=== PATIENT | female | born 1985 | race Hispanic/Latino ===

== ENCOUNTER → 2018-01-23 13:34 | Outpatient (CLI) | payer BC, SELFPAY ==
--- NOTE | 2018-01-23 13:39 | STE_ITS ---
Reason For Study: ABN EKG, HTN Stress Results Protocol: Stress Echocardiogram Maximum Predicted HR: 190 bpm Target HR: 162 bpm% Maximum Pr edicted HR: 86 % DurationHeart Rate Stage (mm:ss) (bpm) BP BASELINE 74 142/98 JANA PROTOCOL- STAGE 1 3:00 11 6 144/96 JANA PROTOCOL- STAGE 2 3:00 13 1 144/100 JANA PROTOCOL- STAGE 3 3:00 16 4 160/102 RECOVERY 87 146/98 Stress Duration: 9:00 mm:ss Maximum Stress HR: 164 bpmM ETS: 10 Baseline Echocardiogram Findings Stress Echo Wall motion Data Resting WMIntermediate WMStress WM Resting Wall Motion Wall Motion Stress All segments Normal. All segments Hyperkinetic. Ejection Fraction 55 %. Ejection Fraction 70 %. Stress Results Heart rate response: appropriate Blood pressure response: resting hypertension - appropriate response Arrhythmias: none Functional capacity: good Stopped secondary to: leg fatigue. EKG Data Resting ECG: NSR. Stress ECG: No obvious ECG changes. Symptoms with Stress No c/o chest discomfort during exercise / recovery. Interpretation Summary NEGATIVE (ADEQUATE) STRESS ECHOCARDIOGRAM Ordering Physician: Claudine Alves PRODUCE SPECIALIST Referring Physician: Christina Butler M.D. Performed By: Danni Darden RDCS
== END ==
PROVIDERS: Family Provider Internal Medicine; PCP Internal Medicine
DX: I10 Essential (primary) hypertension (principal); R07.9 Chest pain, unspecified; R94.31 Abnormal electrocardiogram [ECG] [EKG]
CPT/HCPCS: 93017; 93350

== ENCOUNTER → 2018-06-01 21:51 | Outpatient (CLI) | payer BC, SELFPAY ==
[2018-06-01 23:59] LABS: Chlamydia Trachomatis by PCR Negative (Negative); Neisserai gonorrhoeae by PCR Negative (Negative); Probe Check PASS; Sample Adequacy Control PASS; Specimen Processing Control PASS
[2018-06-08 11:10] LABS: HPV Genotype 16, Aptima Negative (Negative)
[2018-06-08 15:39] LABS: HPV APTIMA, High Risk Positive (Negative); HPV Genotype 18,45 Aptima Negative (Negative)
== END ==
PROVIDERS: Family Provider Internal Medicine; PCP Internal Medicine; Referring Provider Obstetrics & Gynecology; Visit Provider Obstetrics & Gynecology
DX: O16.1 Unspecified maternal hypertension, first trimester (principal); O09.90 Supervision of high risk pregnancy, unspecified, unspecified trimester; Z3A.00 Weeks of gestation of pregnancy not specified
CPT/HCPCS: 87086; 87088; 87491; 87591; 87624; 88175; G0145

== ENCOUNTER → 2018-06-21 09:33 | Outpatient (CLI) | payer BC, SELFPAY ==
[2018-06-21 10:20] LABS: Absolute Lymphocyte Count 1.63 X10^3/ul (0.83-4.51); Absolute Neutrophil Count 5.9 X10^3/uL (2.0-7.7); Basophil# 0.01 X10^3/uL; Basophil% 0.1 % (0-1); Eosinophil# 0.06 X10^3/uL; Eosinophils% 0.8 % (0-5); Hematocrit 36.3 % (37-47); Hemoglobin 11.9 g/dl (12.0-15.0); Lymphocyte # 1.63 X10^3/ul (4.0); Lymphocyte % 20.5 % (19-41); Mean Corp Hgb Conc 32.8 g/gl (32-36); Mean Corpuscular Hgb 26.6 pg (27.0-32.0); Mean Platelet Vol. 9.7 fl (6.2-12.0); Monocyte# 0.34 X10^3/uL; Monocyte% 4.3 % (0-10); Neutrophil # 5.92 X10^3/uL (2.7-7.7); Neutrophil % 74.2 % (47-70); Platelet Count 219 K/mm3 (150-450); RBC Distribution Width CV 13.4 % (11.6-14.6); RBC Distribution Width SD 39.3 fl (35.1-43.9); Red Blood Count 4.48 M/mm3 (4.2-5.4)
[2018-06-21 10:32] LABS: POSITIVE COUNT NO; POSITIVE DIFFERENTIAL NO; POSITIVE MORPHOLOGY NO
[2018-06-21 10:57] LABS: ALB/GLOB Ratio 0.8 RATIO (0.9-2.4); AST(SGOT) 12 U/L (15-37); Alanine Aminotransfer ALT/SGPT 27 U/L (13-56); Albumin, Serum 3.2 g/dL (3.2-5.0); Alkaline Phosphatase 51 U/L (45-117); Anion Gap 8 (5-15); BUN 14 mg/dL (7-18); BUN/Creat Ratio 26.7 RATIO (10-20); Calcium,Total 8.8 mg/dL (8.5-10.1); Chloride 100 mmol/L (98-107); Creatinine, Serum 0.52 mg/dL (0.55-1.02); EST Glomerular Filtration Rate 145 mL/min (>60); Est Glom Filt Rate - Afr Amer 175 mL/min (>60); Globulin 4.2 g/dL (2.2-4.2); Glucose 81 mg/dL (74-106); Potassium 3.2 mmol/L (3.5-5.1); Protein, Total 7.4 g/dL (6.4-8.2); Sodium Level 137 mmol/L (136-145)
[2018-06-21 11:35] LABS: HIV - WCH Non-Reactive (Nonreactive); Rubella IgG 22.9 IU/mL
[2018-06-22 03:51] LABS: Rapid Plasmin Reagin (RPR) NONREACTIVE (NONREACTIVE)
[2018-06-22 16:09] LABS: Hemoglobin Fraction A 97.4 % (96.4-98.8); Hemoglobin Fraction C 0 % (0.0); Hemoglobin Fraction F 0.6 % (0.0-2.0); Hemoglobin Fraction S 0 % (0.0); Hemoglobin Solubility,Panel Negative (Negative)
[2018-06-23 10:46] LABS: HEPATITIS B SURFACE AG Negative (Negative)
== END ==
PROVIDERS: Family Provider Internal Medicine; PCP Internal Medicine; Referring Provider Obstetrics & Gynecology; Visit Provider Obstetrics & Gynecology
DX: O16.1 Unspecified maternal hypertension, first trimester (principal); O09.90 Supervision of high risk pregnancy, unspecified, unspecified trimester; Z3A.00 Weeks of gestation of pregnancy not specified
CPT/HCPCS: 36415; 80053; 83021; 85025; 85660; 86592; 86703; 86762; 86850; 86900; 87340

== ENCOUNTER → 2018-06-26 09:01 | Outpatient (CLI) | payer BC, SELFPAY | PROVIDERS: Family Provider Internal Medicine; PCP Internal Medicine; Referring Provider Obstetrics & Gynecology; Visit Provider Obstetrics & Gynecology | DX: Z00.00 Encounter for general adult medical examination without abnormal findings (principal) | CPT/HCPCS: 36415 ==

== ENCOUNTER → 2018-07-03 21:57 | Outpatient (CLI) | payer BC, SELFPAY ==
[2018-07-03 08:35] VITALS: BMI 37.2
== END ==
PROVIDERS: Referring Provider Obstetrics & Gynecology; Visit Provider Obstetrics & Gynecology
DX: R30.0 Dysuria (principal)
CPT/HCPCS: 87086; 87088

== ENCOUNTER → 2018-08-20 10:56 | Outpatient (CLI) | payer BC, SELFPAY ==
[2018-08-03 09:03] VITALS: BMI 37.2
--- NOTE | 2018-08-20 11:19 | US_ITS ---
STUDY: SECOND AND THIRD TRIMESTER OBSTETRICAL ULTRASOUND REASON FOR EXAM: Female, 33 years old. Routine survey. LMP: April 02, 2018. TECHNIQUE: Transabdominal TECHNICAL QUALITY: Limited. Examination limited due to obesity. PRIOR ULTRASOUND: None. FINDINGS: There is a single intrauterine fetus. The fetus is in a cephalic presentation. There is demonstrated cardiac activity with a heart rate of 142 bpm. There is a normal amniotic fluid volume. The largest amniotic fluid pocket measures 3.2 cm x 4.0 cm. The amniotic fluid index (BENNETT) is normal. The placenta is There are Grade 0 placental changes. The cervix measures in length. The bilateral adnexal regions are normal. BIOMETRY: BPD: 4.8 cm: 20 weeks, 5 days HC: 18.2 cm: 20 weeks, 4 days AC: 15.3 cm: 20 weeks, 4 days FL: 3.7 cm: 21 weeks, 5 days CI: 79% FL/BPD: 76% FL/HC: FL/AC: 24% HC/AC: 1.19 age by current US: 21 weeks, 0 days. YANE by current US: December 31, 2018. Estimated weight: 392 grams, +/- 57 grams, 92 %. Age by LMP: 20 weeks, 0 days. YANE by LMP: January 07, 2019. ANATOMY: Gender: Female Cranium: Normal lateral ventricles. Normal choroid plexus. Normal cerebellum. Normal cisterna magna. The face, nose and lips are not visualized. Chest: Normal 4-chamber heart. Abdomen/Pelvis: Normal diaphragm. Normal stomach. Normal abdominal wall. Normal cord insertion. Normal 3 vessel cord. Normal kidneys. Normal bladder. Spine: Normal cervical spine. Normal thoracic spine. The lumbar spine is not completely visualized. Normal sacrum. Extremities: Normal bilateral upper extremities. Normal bilateral lower extremities. US/OB Anatomy Scan IMPRESSION: Single live intrauterine gestation with a mean gestational age of 20 weeks. Electronically Signed: Shashank Woodawrd MD at 15:09 EST Tel [phone], Service support ,
== END ==
PROVIDERS: Family Provider Internal Medicine; PCP Internal Medicine; Referring Provider Obstetrics & Gynecology; Visit Provider Obstetrics & Gynecology
DX: O09.90 Supervision of high risk pregnancy, unspecified, unspecified trimester (principal); Z3A.00 Weeks of gestation of pregnancy not specified
CPT/HCPCS: 76805

== ENCOUNTER → 2018-10-01 17:07 | Outpatient (CLI) | payer BC, SELFPAY ==
[2018-10-01 16:36] VITALS: BMI 37.2
[2018-10-01 17:57] LABS: Glucose Challenge Gest 1H 50g 119 mg/dL (70-140)
== END ==
PROVIDERS: Family Provider Internal Medicine; PCP Internal Medicine; Referring Provider Obstetrics & Gynecology; Visit Provider Obstetrics & Gynecology
DX: O09.90 Supervision of high risk pregnancy, unspecified, unspecified trimester (principal)
CPT/HCPCS: 36415; 82950

== ENCOUNTER → 2018-11-15 13:55 | Outpatient (CLI) | payer BC, SELFPAY ==
[2018-11-02 15:25] VITALS: BMI 37.2
--- NOTE | 2018-11-15 13:56 | US_ITS ---
STUDY: SECOND AND THIRD TRIMESTER OBSTETRICAL ULTRASOUND - LIMITED REASON FOR EXAM: Female, 33 years old. Amniotic fluid check. LMP: April 02, 2018. PRIOR ULTRASOUND: Comparison is made with prior examination dated February 07, 2019. TECHNIQUE: Transabdominal TECHNICAL QUALITY: Adequate. FINDINGS: There is a single intrauterine fetus. The fetus is in a cephalic presentation. There is demonstrated cardiac activity with a heart rate of 128 -153 bpm. There is a normal amniotic fluid volume. The largest amniotic fluid pocket measures 5.2 cm. The amniotic fluid index (BENNETT) is 16.1 cm. The placenta is anterior in location and is not low lying. There are Grade 1 placental changes. The cervix measures 3.7 cm in length. BIOMETRY: Age by LMP: 32 weeks, 3 days. YANE by LMP: January 07, 2019. age by prior US: 33 weeks, 3 days. YANE by prior US: December 31, 2018. Gender: Indeterminant US/OB Limited (No Biometrics) IMPRESSION: Normal amniotic fluid. Electronically Signed: Shashank Woodward, at 11:21 EDT , Service support ,
== END ==
PROVIDERS: Family Provider Internal Medicine; PCP Internal Medicine; Referring Provider Obstetrics & Gynecology; Visit Provider Obstetrics & Gynecology
DX: O16.3 Unspecified maternal hypertension, third trimester (principal); Z3A.00 Weeks of gestation of pregnancy not specified
CPT/HCPCS: 76815

== ENCOUNTER → 2018-11-21 | Outpatient (CLI) | payer BC, SELFPAY ==
[2018-11-17 14:30] VITALS: BMI 37.2
--- NOTE | 2018-11-21 14:00 | US_ITS ---
STUDY: SECOND AND THIRD TRIMESTER OBSTETRICAL ULTRASOUND - LIMITED REASON FOR EXAM: Female, 33 years old. Hypertension. Weekly amniotic fluid index measurements. LMP: April 02, 2018. PRIOR ULTRASOUND: Comparison is made with prior study dated November 15, 2018 and August 20, 2018. TECHNIQUE: Transabdominal TECHNICAL QUALITY: Adequate. FINDINGS: There is a single intrauterine fetus. The fetus is in a cephalic presentation. There is demonstrated cardiac activity with a heart rate of 144 bpm. There is a normal amniotic fluid volume. The largest amniotic fluid pocket measures 6.9 cm. The amniotic fluid index (BENNETT) is 15.24 cm. The placenta is anterior in location and is not low lying. There are Grade 1 placental changes. The cervix measures 3.2 cm in length. US/OB Limited (No Biometrics) IMPRESSION: Normal amniotic fluid index. Electronically Signed: Shashank Woodward, at 8:45 EDT , Service support ,
== END | disposition home or self-care (01) ==
LOC: OPUS 13:59
PROVIDERS: Family Provider Internal Medicine; PCP Internal Medicine; Referring Provider Obstetrics & Gynecology; Visit Provider Obstetrics & Gynecology
DX: O16.9 Unspecified maternal hypertension, unspecified trimester (principal); Z3A.00 Weeks of gestation of pregnancy not specified
CPT/HCPCS: 76815

== ENCOUNTER → 2018-11-30 | Outpatient (CLI) | payer BC, SELFPAY ==
[2018-11-17 14:30] VITALS: BMI 37.2
[2018-11-23 15:40] VITALS: BMI 37.2
--- NOTE | 2018-11-30 08:03 | US_ITS ---
STUDY: SECOND AND THIRD TRIMESTER OBSTETRICAL ULTRASOUND - LIMITED REASON FOR EXAM: Female, 33 years old. Weekly amniotic fluid check. LMP: November 21, 2018. PRIOR ULTRASOUND: Comparison is made with prior study dated November 21, 2018 and November 15, 2018. TECHNIQUE: Transabdominal and Transvaginal TECHNICAL QUALITY: Adequate. FINDINGS: There is a single intrauterine fetus. The fetus is in a cephalic presentation. There is demonstrated cardiac activity with a heart rate of 133 bpm. There is a normal amniotic fluid volume measures upper limits of normal. The largest amniotic fluid pocket measures 6.2 cm. The amniotic fluid index (BENNETT) is 20.88 cm. The placenta is anterior in location and is not low lying. There are Grade 1 placental changes. The cervix measures 3.0 cm in length. Age by LMP: 34 weeks, 4 days. YANE by LMP: January 07, 2019. age by prior US: 35 weeks, 4 days. YANE by prior US: December 31, 2018. US/OB Limited (No Biometrics) IMPRESSION: The amniotic fluid index measures upper limits of normal. Electronically Signed: Shashank Woodward, at 9:17 EDT , Service support ,
== END | disposition home or self-care (01) ==
PROVIDERS: Family Provider Internal Medicine; PCP Internal Medicine; Referring Provider Obstetrics & Gynecology; Visit Provider Obstetrics & Gynecology
DX: O16.3 Unspecified maternal hypertension, third trimester (principal); Z3A.00 Weeks of gestation of pregnancy not specified
CPT/HCPCS: 76815

== ENCOUNTER → 2018-12-04 | Outpatient (CLI) | payer BC, SELFPAY ==
[2018-11-30 15:31] VITALS: BMI 37.2
[2018-12-04 17:28] LABS: Absolute Lymphocyte Count 1.63 X10^3/ul (0.83-4.51); Absolute Neutrophil Count 6.8 X10^3/uL (2.0-7.7); Basophil# 0.01 X10^3/uL; Basophil% 0.1 % (0-1); Eosinophil# 0.06 X10^3/uL; Eosinophils% 0.7 % (0-5); Hematocrit 36.1 % (37-47); Hemoglobin 11.8 g/dl (12.0-15.0); Lymphocyte # 1.63 X10^3/ul (4.0); Lymphocyte % 18.2 % (19-41); Mean Corp Hgb Conc 32.7 g/gl (32-36); Mean Corpuscular Hgb 26.2 pg (27.0-32.0); Mean Platelet Vol. 10.2 fl (6.2-12.0); Monocyte# 0.45 X10^3/uL; Neutrophil # 6.81 X10^3/uL (2.7-7.7); Neutrophil % 75.8 % (47-70); Platelet Count 230 K/mm3 (150-450); RBC Distribution Width CV 13.8 % (11.6-14.6); Red Blood Count 4.51 M/mm3 (4.2-5.4)
[2018-12-04 17:33] LABS: POSITIVE COUNT NO; POSITIVE DIFFERENTIAL NO; POSITIVE MORPHOLOGY NO
[2018-12-04 17:52] LABS: BUN 11 mg/dL (7-18); Creatinine, Serum 0.54 mg/dL (0.55-1.02); EST Glomerular Filtration Rate 140 mL/min (>60); Glucose 82 mg/dL (74-106)
[2018-12-04 17:53] LABS: ALB/GLOB Ratio 0.6 RATIO (0.9-2.4); AST(SGOT) 12 U/L (15-37); Alanine Aminotransfer ALT/SGPT 14 U/L (13-56); Albumin, Serum 2.7 g/dL (3.2-5.0); Alkaline Phosphatase 109 U/L (45-117); Anion Gap 6 (5-15); BUN/Creat Ratio 20.4 RATIO (10-20); Calcium,Total 8.6 mg/dL (8.5-10.1); Chloride 102 mmol/L (98-107); Est Glom Filt Rate - Afr Amer 169 mL/min (>60); Globulin 4.3 g/dL (2.2-4.2); LDH 159 U/L (84-246); Potassium 3.6 mmol/L (3.5-5.1); Sodium Level 135 mmol/L (136-145); Uric Acid 6.3 mg/dL (2.6-6.0)
[2018-12-04 18:05] LABS: Protein, Urine (Random) < 6.0 mg/dL (<11.9); Protein:Creat Ratio 145 mg/g CRE (0-200)
== END | disposition home or self-care (01) ==
PROVIDERS: Family Provider Internal Medicine; PCP Internal Medicine; Referring Provider Obstetrics & Gynecology; Visit Provider Obstetrics & Gynecology
DX: O16.1 Unspecified maternal hypertension, first trimester (principal); O26.891 Other specified pregnancy related conditions, first trimester; L50.9 Urticaria, unspecified; Z3A.00 Weeks of gestation of pregnancy not specified
CPT/HCPCS: 36415; 80053; 82570; 83615; 84156; 84550; 85025

== ENCOUNTER → 2018-12-06 | Outpatient (CLI) | payer BC, SELFPAY ==
[2018-11-17 14:30] VITALS: BMI 37.2
[2018-12-04 16:36] VITALS: BMI 37.2
--- NOTE | 2018-12-06 13:57 | US_ITS ---
STUDY: SECOND AND THIRD TRIMESTER OBSTETRICAL ULTRASOUND - LIMITED REASON FOR EXAM: Female, 33 years old. Hypertension, BENNETT check LMP: 04/02/2018 PRIOR ULTRASOUND: 11/30/2018 TECHNIQUE: Transabdominal TECHNICAL QUALITY: Adequate. FINDINGS: There is a single intrauterine fetus. The fetus is in a cephalic presentation. There is demonstrated cardiac activity with a heart rate of 150 bpm. There is a normal amniotic fluid volume. The largest amniotic fluid pocket measures 6.8 cm. The amniotic fluid index (BENNETT) is 14.8 cm. The placenta is anterior in location and is not low lying. There are Grade 1 placental changes. The cervix measures 3.0 cm in length. Age by LMP: 35 weeks, 3 days. YANE by LMP: 01/07/2019. age by prior US: 36 weeks, 3 days. YANE by prior US: 12/31/2018. US/OB Limited (No Biometrics) IMPRESSION: Single live intrauterine with heart rate of 150 bpm. MVP measures 6.8 cm with BENNETT measuring 14.8 cm Electronically Signed: Robb Villatoro MD at 15:28 EDT , Service support ,
== END | disposition home or self-care (01) ==
PROVIDERS: Family Provider Internal Medicine; PCP Internal Medicine; Referring Provider Obstetrics & Gynecology; Visit Provider Obstetrics & Gynecology
DX: O16.3 Unspecified maternal hypertension, third trimester (principal); Z3A.00 Weeks of gestation of pregnancy not specified
CPT/HCPCS: 76815

== ENCOUNTER → 2018-12-12 | Outpatient (CLI) | payer BC, SELFPAY ==
[2018-11-17 14:30] VITALS: BMI 37.2
[2018-12-07 08:13] VITALS: BMI 37.2
--- NOTE | 2018-12-12 08:04 | US_ITS ---
STUDY: SECOND AND THIRD TRIMESTER OBSTETRICAL ULTRASOUND - LIMITED REASON FOR EXAM: Female, 33 years old. Weekly amniotic fluid index study. LMP: April 02, 2018. PRIOR ULTRASOUND: Comparison is made with prior study dated December 06, 2018. TECHNIQUE: Transabdominal TECHNICAL QUALITY: Adequate. FINDINGS: There is a single intrauterine fetus. The fetus is in a cephalic presentation. There is demonstrated cardiac activity with a heart rate of 129 bpm. There is a normal amniotic fluid volume. The largest amniotic fluid pocket measures 8.1 cm. The amniotic fluid index (BENNETT) is 16.45 cm. The placenta is anterior in location and is not low lying. There are Grade 2 placental changes. The cervix measures 3.0 cm in length. US/OB Limited (No Biometrics) IMPRESSION: Single live intrauterine gestation. Normal amniotic fluid. Electronically Signed: Shashank Woodward, at 13:44 EDT , Service support ,
== END | disposition home or self-care (01) ==
PROVIDERS: Family Provider Internal Medicine; PCP Internal Medicine; Referring Provider Obstetrics & Gynecology; Visit Provider Obstetrics & Gynecology
DX: O16.9 Unspecified maternal hypertension, unspecified trimester (principal); Z3A.00 Weeks of gestation of pregnancy not specified
CPT/HCPCS: 76815

== ENCOUNTER → 2018-12-13 | Outpatient (CLI) | payer BC, SELFPAY ==
[2018-12-13 16:35] VITALS: BMI 37.2
== END | disposition home or self-care (01) ==
LOC: LABSPEC 16:54
PROVIDERS: Family Provider Internal Medicine; PCP Internal Medicine; Referring Provider Nurse Practitioner Women's Health; Visit Provider Nurse Practitioner Women's Health
DX: Z34.90 Encounter for supervision of normal pregnancy, unspecified, unspecified trimester (principal)
CPT/HCPCS: 87081

== ENCOUNTER → 2018-12-20 14:03 | Outpatient (CLI) | payer BC, SELFPAY ==
[2018-11-17 14:30] VITALS: BMI 37.2
[2018-12-13 16:35] VITALS: BMI 37.2
--- NOTE | 2018-12-20 14:06 | US_ITS ---
STUDY: SECOND AND THIRD TRIMESTER OBSTETRICAL ULTRASOUND - LIMITED REASON FOR EXAM: Female, 33 years old. Weekly amniotic fluid check. LMP: April 02, 2018. PRIOR ULTRASOUND: Comparison is made with prior study of December 12, 2018. TECHNIQUE: Transabdominal TECHNICAL QUALITY: Adequate. FINDINGS: There is a single intrauterine fetus. The fetus is in a cephalic presentation. There is demonstrated cardiac activity with a heart rate of 146 bpm. There is a normal amniotic fluid volume. The largest amniotic fluid pocket measures 5.2 cm. The amniotic fluid index (BENNETT) is 9.5 cm. The placenta is anterior in location and is not low lying. There are Grade 2 placental changes. US/OB Limited (No Biometrics) IMPRESSION: Amniotic fluid is within normal limits. Electronically Signed: Shashank Woodward, at 14:08 EDT , Service support ,
[2018-12-20 17:29] LABS: Absolute Lymphocyte Count 1.52 X10^3/ul (0.83-4.51); Absolute Neutrophil Count 8.4 X10^3/uL (2.0-7.7); Basophil# 0.01 X10^3/uL; Basophil% 0.1 % (0-1); Eosinophil# 0.04 X10^3/uL; Eosinophils% 0.4 % (0-5); Hematocrit 34.5 % (37-47); Hemoglobin 11.5 g/dl (12.0-15.0); Lymphocyte # 1.52 X10^3/ul (4.0); Lymphocyte % 14.4 % (19-41); Mean Corp Hgb Conc 33.3 g/gl (32-36); Mean Corpuscular Hgb 26.2 pg (27.0-32.0); Mean Corpuscular Volume 78.6 fL (81-99); Mean Platelet Vol. 10.2 fl (6.2-12.0); Monocyte# 0.57 X10^3/uL; Monocyte% 5.4 % (0-10); Neutrophil % 79.4 % (47-70); Platelet Count 224 K/mm3 (150-450); RBC Distribution Width CV 14.1 % (11.6-14.6); RBC Distribution Width SD 38.8 fl (35.1-43.9); Red Blood Count 4.39 M/mm3 (4.2-5.4); White Blood Count 10.6 K/mm3 (4.4-11.0)
[2018-12-20 17:35] LABS: POSITIVE COUNT NO; POSITIVE DIFFERENTIAL NO; POSITIVE MORPHOLOGY NO
[2018-12-20 18:33] LABS: ALB/GLOB Ratio 0.6 RATIO (0.9-2.4); AST(SGOT) 14 U/L (15-37); Alanine Aminotransfer ALT/SGPT 13 U/L (13-56); Albumin, Serum 2.6 g/dL (3.2-5.0); Alkaline Phosphatase 120 U/L (45-117); Anion Gap 6 (5-15); BUN 14 mg/dL (7-18); BUN/Creat Ratio 24.7 RATIO (10-20); Calcium,Total 8.7 mg/dL (8.5-10.1); Chloride 101 mmol/L (98-107); Creatinine, Serum 0.57 mg/dL (0.55-1.02); EST Glomerular Filtration Rate 132 mL/min (>60); Est Glom Filt Rate - Afr Amer 160 mL/min (>60); Glucose 105 mg/dL (74-106); Potassium 3.5 mmol/L (3.5-5.1); Protein, Total 6.6 g/dL (6.4-8.2); Sodium Level 133 mmol/L (136-145)
== END ==
PROVIDERS: Family Provider Internal Medicine; PCP Internal Medicine; Referring Provider Obstetrics & Gynecology; Visit Provider Obstetrics & Gynecology
DX: O16.9 Unspecified maternal hypertension, unspecified trimester (principal)
CPT/HCPCS: 36415; 76815; 80053; 85025

== ENCOUNTER 2018-12-21 15:30 | Outpatient (CLI) | payer BC, SELFPAY ==
[2018-12-21 15:22] VITALS: BMI 43.7
[2018-12-21 15:55] VITALS: BMI 43.9
[2018-12-21 16:19] LABS: Hematocrit 34.8 % (37-47); Hemoglobin 11.7 g/dl (12.0-15.0); Mean Corp Hgb Conc 33.6 g/gl (32-36); Mean Corpuscular Hgb 26.5 pg (27.0-32.0); Mean Corpuscular Volume 78.9 fL (81-99); Mean Platelet Vol. 10.3 fl (6.2-12.0); Platelet Count 223 K/mm3 (150-450); RBC Distribution Width CV 14.2 % (11.6-14.6); RBC Distribution Width SD 39.2 fl (35.1-43.9); Red Blood Count 4.41 M/mm3 (4.2-5.4); White Blood Count 9.4 K/mm3 (4.4-11.0)
[2018-12-21 16:29] LABS: Scan Indicated on CBC? Y/N NO
[2018-12-21 16:32] LABS: AST(SGOT) 8 U/L (15-37); Alanine Aminotransfer ALT/SGPT 15 U/L (13-56); Creatinine, Serum 0.64 mg/dL (0.55-1.02); EST Glomerular Filtration Rate 114 mL/min (>60); Est Glom Filt Rate - Afr Amer 137 mL/min (>60); Estimated Creatinine Clearance 96.11 ml/min
[2018-12-21 16:39] LABS: Protein, Urine (Random) 24.4 mg/dL (<11.9); Protein:Creat Ratio 157 mg/g CRE (0-200)
[2018-12-21 16:44] LABS: International Normalized Ratio 1.1
[2018-12-21 16:45] LABS: Partial Thromboplast Time 28.8 Seconds (24.1-36.2)
--- NOTE | 2018-12-23 20:24 | OB.TRI.PN_ITS ---
Progress Notes Date of Service: 12/21/18 Progress Note: Patient seen for elevated blood pressures 140s over 100s. Patient denies any headache or blurry vision heart tones 140s moderate variability reactive no decelerations category 1 tracing [place]: Irregular contractions Assessment and plan chronic hypertension 37 weeks preeclampsia labs sent and within normal limits. Reviewed blood pressure cuff precautions given follow-up for induction of labor on Monday Laboratory Studies: Laboratory Tests 12/21/18 12/21/18 12/21/18 Range/Units 16:00 16:00 16:00 WBC (4.4-11.0) K/mm3 RBC (4.2-5.4) M/mm3 Hgb (12.0-15.0) g/dl Hct (37-47) % MCV (81-99) fL MCH (27.0-32.0) pg MCHC (32-36) g/gl RDW (11.6-14.6) % RDW Differential (35.1-43.9) fl Plt Count (150-450) K/mm3 MPV (6.2-12.0) fl PT 14.0 (11.7-14.9) SECONDS INR 1.1 APTT 28.8 (24.1-36.2) Seconds Creatinine 0.64 (0.55-1.02) mg/dL Estim Creat Clear Calc 96.11 ml/min Est GFR (MDRD) Af Amer 137 (>60) mL/min Est GFR (MDRD) Non-Af 114 (>60) mL/min Uric Acid 7.0 H (2.6-6.0) mg/dL AST 8 L (15-37) U/L ALT 15 (13-56) U/L U Random Total Protein 24.4 H (<11.9) mg/dL Urine Creatinine 155.00 (NO RANGE EST.) mg/dL Protein/Creatinin Ratio 157 (0-200) mg/g CRE 12/21/18 Range/Units 16:00 WBC 9.4 (4.4-11.0) K/mm3 RBC 4.41 (4.2-5.4) M/mm3 Hgb 11.7 L (12.0-15.0) g/dl Hct 34.8 L (37-47) % MCV 78.9 L (81-99) fL MCH 26.5 L (27.0-32.0) pg MCHC 33.6 (32-36) g/gl RDW 14.2 (11.6-14.6) % RDW Differential 39.2 (35.1-43.9) fl Plt Count 223 (150-450) K/mm3 MPV 10.3 (6.2-12.0) fl PT (11.7-14.9) SECONDS INR APTT (24.1-36.2) Seconds Creatinine (0.55-1.02) mg/dL Estim Creat Clear Calc ml/min Est GFR (MDRD) Af Amer (>60) mL/min Est GFR (MDRD) Non-Af (>60) mL/min Uric Acid (2.6-6.0) mg/dL AST (15-37) U/L ALT (13-56) U/L U Random Total Protein (<11.9) mg/dL Urine Creatinine (NO RANGE EST.) mg/dL Protein/Creatinin Ratio (0-200) mg/g CRE
== END 2018-12-21 17:05 | disposition home or self-care (01) ==
LOC: WPOUT 15:43 → WP 15:44
PROVIDERS: Family Provider Internal Medicine; PCP Internal Medicine; Referring Provider Obstetrics & Gynecology; Visit Provider Obstetrics & Gynecology
DX: O10.913 Unspecified pre-existing hypertension complicating pregnancy, third trimester (principal); Z3A.37 37 weeks gestation of pregnancy
CPT/HCPCS: 36415; 59025; 59050; 82565; 82570; 84156; 84450; 84460; 84550; 85027; 85610; 85730; 99218; G0378

== ENCOUNTER 2018-12-24 19:00 | Inpatient (IN) | payer BC, SELFPAY ==
[2018-12-04 16:36] VITALS: BMI 37.2
[2018-12-24 20:05] VITALS: BMI 43.2
[2018-12-24 20:52] LABS: Absolute Lymphocyte Count 1.75 X10^3/ul (0.83-4.51); Absolute Neutrophil Count 8.5 X10^3/uL (2.0-7.7); Basophil# 0.01 X10^3/uL; Basophil% 0.1 % (0-1); Eosinophil# 0.05 X10^3/uL; Eosinophils% 0.5 % (0-5); Hematocrit 34.4 % (37-47); Hemoglobin 11.6 g/dl (12.0-15.0); Lymphocyte # 1.75 X10^3/ul (4.0); Lymphocyte % 16.2 % (19-41); Mean Corp Hgb Conc 33.7 g/gl (32-36); Mean Corpuscular Hgb 26.9 pg (27.0-32.0); Mean Corpuscular Volume 79.6 fL (81-99); Mean Platelet Vol. 10.2 fl (6.2-12.0); Monocyte# 0.46 X10^3/uL; Monocyte% 4.3 % (0-10); Neutrophil # 8.54 X10^3/uL (2.7-7.7); Neutrophil % 78.8 % (47-70); Platelet Count 214 K/mm3 (150-450); RBC Distribution Width CV 14.3 % (11.6-14.6); RBC Distribution Width SD 40.7 fl (35.1-43.9); Red Blood Count 4.32 M/mm3 (4.2-5.4); White Blood Count 10.8 K/mm3 (4.4-11.0)
[2018-12-24 20:53] LABS: POSITIVE COUNT NO; POSITIVE DIFFERENTIAL NO; POSITIVE MORPHOLOGY NO
[2018-12-24] MEDS: Lactated Ringers 1,000 ML 50 ML IV (21:39)
[2018-12-24 22:55] LABS: International Normalized Ratio 1.1; Prothrombin Time (Protime)PT. 13.7 SECONDS (11.7-14.9)
[2018-12-24 22:56] LABS: Partial Thromboplast Time 28.9 Seconds (24.1-36.2)
[2018-12-24 22:59] LABS: AST(SGOT) 10 U/L (15-37); Alanine Aminotransfer ALT/SGPT 13 U/L (13-56); Creatinine, Serum 0.57 mg/dL (0.55-1.02); EST Glomerular Filtration Rate 130 mL/min (>60); Est Glom Filt Rate - Afr Amer 157 mL/min (>60); Estimated Creatinine Clearance 107.91 ml/min; Uric Acid 6.4 mg/dL (2.6-6.0)
[2018-12-24] MEDS: hydroCHLOROthiazide 25 MG Tablet 50 MG PO (23:30)
--- NOTE | 2018-12-25 06:34 | HP.PCM_ITS ---
- Problem List (1) Encounter for induction of labor Status: Acute (2) Status: Acute Qualifiers: Comment: NIPT low risk; normal anatomy US (3) HPV in female Status: Acute Comment: repeat pap PP (4) Supervision of high risk , antepartum Status: Acute Comment: PRR YANE 01/07/19 Girl claudia eve (5) Hypertension affecting Status: Acute Qualifiers: Comment: baseline labs, ekg this summer WNL History Date of Admission: 12/24/18 Final YANE: 01/07/19 Gestational age: 38 Weeks and 0 Days History of this : This is a 33 year-old, at 38 weeks gestational age presents for IOL secondary to cHTN. she has had well controlled blood pressures this and denies any BLANCO BV or RUQ pain. she admits good fm no regular ctx, lof or vb. Medical History: Medical History (Last Reviewed 12/20/18 @ 15:54 by Franci Lazar) Hypertension I10 Surgical History: Surgical History (Last Reviewed 12/20/18 @ 15:54 by Franci Lazar) S/P tonsillectomy and adenoidectomy Z90.89 Allergies No Known Allergies Allergy (Verified 12/21/18 15:58) Home Medications: Home Medications hydrochlorothiazide 50 mg tablet 50 mg PO DAILY 06/01/18 vitamin,calcium,orwresee-brbu-wwoau acid tablet 1 tab PO DAILY 06/01/18 blood pressure monitor kit See Dose Instructions .ROUTE .MEDSUPPLY #1 ea 09/04/18 Smoking Status: Never smoker Alcohol: None Number of Fetus(es): 1 Heart Tracin moderate variability reactive no decelerations category I tracing [place]: none History Past Pregnancies: Past Pregnancies Delivery Date Name GA/Weeks Outcome Route Weight Infant Gender Labor Length Anesthesia Delivery Location Provider FOB Labs: Mom's Labs & Results 12/24/18 12/24/18 12/24/18 20:20 20:20 20:20 WBC 10.8 RBC 4.32 Hgb 11.6 L Hct 34.4 L MCV 79.6 L MCH 26.9 L MCHC 33.7 RDW 14.3 RDW Differential 40.7 Plt Count 214 MPV 10.2 Immature Gran % (Auto) 0.100 Neut % (Auto) 78.8 H Lymph % (Auto) 16.2 L Bell % (Auto) 4.3 Eos % (Auto) 0.5 Baso % (Auto) 0.1 Absolute Neuts (auto) 8.5 H Absolute Lymphs (auto) 1.75 Total Counted Not Reportable PT 13.7 INR 1.1 APTT 28.9 Creatinine Estim Creat Clear Calc Est GFR (MDRD) Af Amer Est GFR (MDRD) Non-Af Uric Acid AST ALT Blood Type O POSITIVE Antibody Screen NEGATIVE 12/24/18 20:20 WBC RBC Hgb Hct MCV MCH MCHC RDW RDW Differential Plt Count MPV Immature Gran % (Auto) Neut % (Auto) Lymph % (Auto) Bell % (Auto) Eos % (Auto) Baso % (Auto) Absolute Neuts (auto) Absolute Lymphs (auto) Total Counted PT INR APTT Creatinine 0.57 Estim Creat Clear Calc 107.91 Est GFR (MDRD) Af Amer 157 Est GFR (MDRD) Non-Af 130 Uric Acid 6.4 H AST 10 L ALT 13 Blood Type Antibody Screen Course Did the patient receive Yes care? Labs Blood Type: O RH: POSITIVE RPR/VDRL/Syphilis Nonreactive Rubella status Immune HbSAg Negative Date Done: 06/21/19 Chlamydia Negative Gonorrhea Negative HIV/AIDS Non-Reactive Group B Strep: Negative Current Obstetrical History Gestational Diabetes No Incompetent Cervix No Infertility No IUGR No Macrosomia No Hypertension/Pre-eclampsia Yes: hydrochlorathiazide daily Placenta Previa/Abruption No PTL/PROM No Uterine anomaly No Oligohydramnios No Polyhydramnios No Multiple gestation No Past Medical History Asthma No Diabetes No Hypertension Yes: started about 1.5 years before Heart disease No Mitral valve prolapse No Neurologic/Seizure disorder/ No Migraines Kidney disease No Liver disease No Varicosities No Clotting disorders/Hx of DVT No Thyroid Dysfunction No Other medical diseases No Psychiatric disorders No Major trauma No Abnormal PAP smear Yes: May 2019-positive for HPV Sleep apnea No Mammogram in the last 2 years No Enter DETAILS of medical -Had been taking medication before, then went history off medication before , then resumed Social History Marital Status: Alleged father Eve Benites Hx Smoking No Smoking Status Never smoker How long have you used pt denies substances (years)? Expected Delivery Method: Spontaneous Vaginal Describe any other labor & delivery plans:: OB Visit. YANE Calculator. Estimated Delivery Date 01/07/19. Based on LMP (certain) 04/02/18. Current WG 37w 3d. Number 1. Expected Delivery Route/Plan. . Specific Issue/Plans. flu vaccine: given. tdap vaccine: given. rhogam: na. LARC form signed: declines. labor support person: Eve. pain management: epidural. cut cord/dad catch: yes. : yes. PP control planned: special requests: [] Review of Systems Constitutional: Denies: Fever, Malaise Eyes: Denies: Blurred vision, Vision Change HEENT: Denies: Head Aches, Visual Changes Cardiovascular: Denies: Chest Pain, Palpitations Respiratory: Denies: Cough, Shortness of Breath, Wheezing Gastrointestinal: Denies: Abdominal Pain, Diarrhea, Nausea, Vomiting Genitourinary: Denies: Dysuria, Hematuria Musculoskeletal: Denies: Joint Pain, Muscle pain Skin: Denies: Lesions, Rash Neurological: Denies: Blurred vision, Focal weakness, Headaches Psychiatric: Denies: Anxiety, Depression Endocrine: Denies: Heat/ Cold Intolerance Hematologic/ Lymphatic: Denies: Easy Bruising, Easy Bleeding Physical Exam General: Alert, Cooperative, No apparent distress HEENT: Atraumatic, Normocephalic. Negative for: Thyromegaly, Lymphadenopathy Cardiovascular: Regular rate Lungs: Normal air movement Abdomen: Soft, Non Tender, Gravid Neurological: Deep Tendon Reflexes 2+/4 and Symmetrical, Neuro grossly intact. Negative for: Clonus TIMEKEEPER: Normal external genitalia. Negative for: Vulvar lesions Estimated gestational size: Appropriate for gestational size Presentation: Cephalic Cervix Dilation (cm): 0 Assessment/Plan All Active Problems (Last Reviewed 12/20/18 @ 15:54 by Franci Lazar) Encounter for induction of labor (Acute) (Acute) HPV in female (Acute) Supervision of high risk , antepartum (Acute) Hypertension affecting (Acute) This is a 33 year-old, at 38 weeks gestational age presents for IOL secondary to cHTN Patient presents IOL, plan management for , pitocin/AROM after change with cytotec. may need FB Pain management: plans epidural. GBS negative Management of any complications: cHTN-preeclampsia labs WNL, monitor in labor continue med I have reviewed the [facility] and made any clinically relevant updates.
[2018-12-25] MEDS: 0.9% Normal Saline 100 ML IV.SOLN. INTRA-UTER (08:12)
[2018-12-25] MEDS: Oxytocin 30 units/NS 500 ml 30 UNITS/500 ML IV.SOLN IV (09:24)
--- NOTE | 2018-12-25 09:25 | PCM.PN.BLA ---
Progress Note fht 140s moderate variability reactive no decelerations category I tracing [place]: irregular /-1 fb placed and will plan pitocin
[2018-12-25] MEDS: Lactated Ringers 1,000 ML 50 ML IV ×4 (13:20→21:35)
[2018-12-25] MEDS: fentaNYL-bupivacaine (epidural) 100 ML BAG EPIDURAL ×3 (13:37→22:21)
--- NOTE | 2018-12-25 14:13 | NURSING ---
Epidural placement time delayed by DIANE occuring on the unit.
[2018-12-25] MEDS: Mag Hydrox/Al Hydrox/Simeth 30 ML UDC PO (21:35)
[2018-12-25] MEDS: hydroCHLOROthiazide 25 MG Tablet 50 MG PO (22:22)
[2018-12-26] VITALS (21 sets, daily range): BP systolic 98–158; BP diastolic 73–109; PULSE 101–120; RESP 16–20; TEMP 36.3–36.9; O2SAT 98–100
[2018-12-26] MEDS: Ondansetron 4 MG/2 ML Vial IV ×2 (00:56→08:06)
[2018-12-26] MEDS: Lactated Ringers 1,000 ML 50 ML IV ×2 (02:30→07:03)
--- NOTE | 2018-12-26 02:35 | PCM.PN.BLA ---
Progress Note fht 120-130 min-mod variability reactive no decels. toco q 2-3 min adequate. 9-10 cm. continue pit per protocol
[2018-12-26] MEDS: fentaNYL-bupivacaine (epidural) 100 ML BAG EPIDURAL (03:05)
[2018-12-26] MEDS: CHLORHEXIDINE GLUC 2% CLOTH 1 EACH TOWELETTE TOPICAL (06:08)
[2018-12-26] MEDS: Sodium Citrate/Citric Acid 30 ML UDC PO (07:02)
--- NOTE | 2018-12-26 07:02 | PCM.PN.BLA ---
Progress Note fht 120-130 min-mod variability cat II tracing positive scalp stimulation. adequate contractions for over 4 hours no cervical change still 8-9 cm 0 station. ineffective epidural patient very painful even after redosing multiple times. discussed with patient and will plan primary for arrest of dilation.
[2018-12-26] MEDS: Cefazolin 2 GM in 0.9% Normal Saline 100 ML IV (07:04)
--- NOTE | 2018-12-26 07:04 | PCM.OPRPT ---
Problem List (1) Encounter for induction of labor Status: Acute (2) Status: Acute Qualifiers: Comment: NIPT low risk; normal anatomy US (3) HPV in female Status: Acute Comment: repeat pap PP (4) Supervision of high risk , antepartum Status: Acute Comment: PRR YANE 01/07/19 Girl claudia eve (5) Hypertension affecting Status: Acute Qualifiers: Comment: baseline labs, ekg this summer WNL (6) Inadequate analgesia Status: Acute (7) Arrest of dilation, delivered, current hospitalization Status: Acute Report of Operation Date of Procedure: 12/26/18 Surgery/Procedure Performed:: LTCS adjunct instructor: Neisha Mejia Type of Anesthesia:: Spinal Grafts/Implants Used: none Delivery Classification: WINNIE Final YANE: 01/07/19 Gestational age: 38 Weeks and 2 Days Indications for : Arrrest of Descent Description of Procedure: 33-year-old G1, P0 who presented at 38 weeks for induction of labor secondary to chronic hypertension. Patient was initially given Cytotec and then may change to 1 to 2 cm and was started on a [place] bulb with Pitocin. Patient had spontaneous rupture of membranes and made progress to 8 to 9 cm. After 5 hours of mostly adequate contractions she had not progressed beyond 8 to 9 cm and a 0 station. Patient had significant discomfort with her epidural and an adequate anesthesia despite multiple re-doses patient declined replacement of the epidural. After discussing with the patient and her decision for primary secondary to arrest of dilation. Pitocin had been given for 22 hours and rupture of membranes was for over 18 hours. Spinal anesthesia was placed without difficulty. The patient was placed in the dorsal supine position with leftward tilt. Patient was prepped and draped in the normal sterile fashion. Pfannenstiel skin incision was made with the scalpel and carried through to the underlying layer of fascia with the scalpel. Fascia was nicked in the midline and the incision extended laterally. The rectus bellies were dissected off superiorly and inferiorly with out complication both sharply and bluntly. The peritoneum was entered digitally. The incision was stretched and a low transverse uterine incision was made with the scalpel. The infant's head was delivered atraumatically followed by the anterior and posterior shoulders without complication the rest of the infant delivered. The cord was clamped and cut and the infant was handed off to awaiting nurse. The placenta was delivered spontaneously immediately following and was noted to be intact and have a three-vessel cord. The uterus was exteriorized cleared of all clots and debris, and the incision was closed in a double layer closure using #1 Monocryl. The uterus was returned to the maternal abdomen and gutters were cleared of all clots and debris. The ovaries and fallopian tubes were noted to be within normal limits. The peritoneum was closed with 3-0 Monocryl in a running fashion. Fascia was closed with 0 PDS in a running fashion. Subcutaneous tissue was copiously irrigated and the skin was closed with 3-0 Monocryl in a subcuticular fashion. silver Mepilex dressing were applied without complication. Patient was taken to recovery in stable condition. Amniotic Membrane Rupture Type: Artificial Amniotic Fluid Description: Clear Placenta Disposition: [facility] Cord Entanglement: None Esitmated Blood Loss (ml): 900 Infant Gender: Male Delayed cord clamping: Yes Pre-op Antibiotic Given: Ancef 2 grams IV x1 - azithro Complications: None
[2018-12-26] MEDS: Oxytocin 30 units/NS 500 ml 30 UNITS/500 ML IV.SOLN IV (07:52)
[2018-12-26] MEDS: Oxytocin 30 units/NS 500 ml 30 UNITS/500 ML IV.SOLN 167 UNITS IV (07:52)
[2018-12-26] MEDS: Ketorolac 30 MG/ML Syringe IV ×3 (08:20→20:16)
[2018-12-26] MEDS: Lactated Ringers 1,000 ML 100 ML IV ×3 (08:38→23:10)
--- NOTE | 2018-12-26 08:40 | NURSING ---
anesthesia informed of need to use hotdog warmer underneath pt during csection procedure to follow infection control guidelines. magalie ESCOBAR spoke with Dr. Corbett to plug in machine before surgery began at 0748. He stated pt was too warm and did not need the warmer at this time. magalie Escobar spoke with Tashia Camacho to discuss further interventions and follow up. pt temp WNL. will continue to monitor after procedure complete.
--- NOTE | 2018-12-26 12:08 | NURSING ---
spoke with sports manager naya regarding the PACU score of 7 during recovery due to lower BP. Initial baseline BP was elevated in 150s systolically, so it was causing the BP range to be scored. this RN attempted to contact Dr. Foreman nurse twice to leave a message about this for the doctor and was unable to get ahold of her. BP WNL throughout entire recovery. No signs or symptoms to report at this time. will continue to monitor. bedside report given to shelly MCDONALD and information passed on.
[2018-12-26] MEDS: Prenatal Vits Tablet 1 TABLET PO (12:45)
[2018-12-26] MEDS: Enoxaparin 40 MG/0.4 ML Syringe SC (22:47)
--- NOTE | 2018-12-26 23:30 | NURSING ---
Pt. reports mild numbness left in the outer aspects of both upper thighs from epidural and duramorph medications. Pt. sat up and dangled at bedside for about 5 minutes and reported she felt like she felt okay to stand. Nurse assist x2 pt. stood, march in place, then went to the recliner to sit up for a bit and nurse .
[2018-12-26] MEDS: hydroCHLOROthiazide 25 MG Tablet 50 MG PO (23:38)
[2018-12-27] VITALS (8 sets, daily range): BP systolic 118–142; BP diastolic 81–94; PULSE 92–116; RESP 16–19; TEMP 36.4–37.1; O2SAT 97–100
[2018-12-27] MEDS: Senna/Docusate Sodium 1 Tablet PO (02:17)
[2018-12-27] MEDS: Ketorolac 30 MG/ML Syringe IV ×2 (02:17→08:30)
[2018-12-27 05:26] LABS: Hemoglobin 8.8 g/dl (12.0-15.0); Mean Corp Hgb Conc 32.6 g/gl (32-36); Mean Corpuscular Hgb 26.2 pg (27.0-32.0); Mean Corpuscular Volume 80.4 fL (81-99); Mean Platelet Vol. 9.8 fl (6.2-12.0); Platelet Count 147 K/mm3 (150-450); RBC Distribution Width CV 14.6 % (11.6-14.6); RBC Distribution Width SD 40.9 fl (35.1-43.9); Red Blood Count 3.36 M/mm3 (4.2-5.4); Scan Indicated on CBC? Y/N NO; White Blood Count 10.5 K/mm3 (4.4-11.0)
[2018-12-27] MEDS: Acetaminophen 500 MG Tablet 1000 MG PO ×2 (10:53→19:01)
[2018-12-27] MEDS: 0.9% Saline Lock 10 ML Syringe IV (14:59)
[2018-12-27] MEDS: Prenatal Vits Tablet 1 TABLET PO (14:59)
[2018-12-27] MEDS: Ketorolac 10 MG Tablet PO ×2 (16:40→22:41)
[2018-12-27] MEDS: oxyCODONE 5 MG Tablet PO ×2 (17:48→21:33)
[2018-12-27] MEDS: Enoxaparin 40 MG/0.4 ML Syringe SC (21:32)
[2018-12-27] MEDS: hydroCHLOROthiazide 25 MG Tablet 50 MG PO (21:33)
[2018-12-28] MEDS: oxyCODONE 5 MG Tablet PO ×5 (02:07→22:07)
[2018-12-28 02:10] VITALS: BP 145/93; PULSE 98; RESP 17
[2018-12-28] MEDS: Ketorolac 10 MG Tablet PO (05:03)
[2018-12-28 07:49] VITALS: BP 139/96; PULSE 100; RESP 20; TEMP 36.4
[2018-12-28] MEDS: Prenatal Vits Tablet 1 TABLET PO (11:08)
[2018-12-28] MEDS: Senna/Docusate Sodium 1 Tablet PO (11:08)
[2018-12-28 14:00] VITALS: BP 145/92; PULSE 95; RESP 16; TEMP 36.4
[2018-12-28 21:45] VITALS: BP 143/92; PULSE 108; RESP 20; TEMP 36.6; O2SAT 97
--- NOTE | 2018-12-28 22:01 | PCM.PN.OB ---
Patient Problems: Active and Suspected Problems (Last Reviewed 12/20/18 @ 15:54 by Franci Lazar) Encounter for induction of labor (Acute) Inadequate analgesia (Acute) Arrest of dilation, delivered, current hospitalization (Acute) Subjective: doing well no complaints pain controlled no CP SOB N V ambulating well tolerating po lochia moderate, going well - Physical Exam General: Alert, Oriented x3 Vital Signs Temp Pulse Resp BP Pulse Ox 97.5 F L 95 16 145/92 H 97 12/28/18 14:00 12/28/18 14:00 12/28/18 14:00 12/28/18 14:00 12/27/18 14:25 Oxygen Delivery Method Room Air Weight: 232 lb 9.403 oz Body Mass Index (BMI) 43.2 Intake and Output for Last 24 Hours 12/26/18 12/27/18 12/28/18 23:59 23:59 23:59 Intake Total 5032 / 5032 1796 / 1796 Output Total 1350 / 1350 3025 / 3025 Balance 3682 / 3682 -1229 / -1229 Medical Necessity - Tobacco Use Smoking Status: Never smoker Assessment/Plan All Active Problems (Last Reviewed 12/20/18 @ 15:54 by Franci Lazar) Encounter for induction of labor (Acute) Inadequate analgesia (Acute) Arrest of dilation, delivered, current hospitalization (Acute) (Acute) HPV in female (Acute) Supervision of high risk , antepartum (Acute) Hypertension affecting (Acute) s/p LTCS PPD # 2 1. routine post care 2. breast feeding- support given 3. rh positive 4. rubella immune
[2018-12-28] MEDS: hydroCHLOROthiazide 25 MG Tablet 50 MG PO (22:07)
[2018-12-28] MEDS: Enoxaparin 40 MG/0.4 ML Syringe SC (22:07)
[2018-12-29 02:22] VITALS: BP 140/96; PULSE 97; RESP 20; TEMP 36.6; O2SAT 97
[2018-12-29] MEDS: Prenatal Vits Tablet 1 TABLET PO (08:00)
[2018-12-29] MEDS: Naproxen 250 MG Tablet PO (08:01)
[2018-12-29] MEDS: Senna/Docusate Sodium 1 Tablet PO (08:02)
[2018-12-29 08:10] VITALS: BP 141/93; PULSE 84; RESP 18; TEMP 36.6; O2SAT 97
--- NOTE | 2018-12-29 09:14 | PCM.PN.OB ---
Patient Problems: Active and Suspected Problems (Last Reviewed 12/20/18 @ 15:54 by Franci Lazar) Encounter for induction of labor (Acute) Inadequate analgesia (Acute) Arrest of dilation, delivered, current hospitalization (Acute) Subjective: doing well no complaints pain controlled no CP SOB N V ambulating well tolerating po lochia moderate, going well - Physical Exam General: Alert, Oriented x3 Vital Signs Temp Pulse Resp BP Pulse Ox 97.8 F 84 18 141/93 H 97 12/29/18 08:10 12/29/18 08:10 12/29/18 08:10 12/29/18 08:10 12/29/18 08:10 Oxygen Delivery Method Room Air Weight: 232 lb 9.403 oz Body Mass Index (BMI) 43.2 Intake and Output for Last 24 Hours 12/27/18 12/28/18 12/29/18 23:59 23:59 23:59 Intake Total 1796 / 1796 Output Total 3025 / 3025 Balance -1229 / -1229 Medical Necessity - Tobacco Use Smoking Status: Never smoker Assessment/Plan All Active Problems (Last Reviewed 12/20/18 @ 15:54 by Franci Lazar) Encounter for induction of labor (Acute) Inadequate analgesia (Acute) Arrest of dilation, delivered, current hospitalization (Acute) (Acute) HPV in female (Acute) Supervision of high risk , antepartum (Acute) Hypertension affecting (Acute) s/p LTCS PPD # 3 1. routine post care 2. breast feeding- support given 3. rh positive 4. rubella immune
--- NOTE | 2018-12-29 09:15 | DCINST_ITS ---
Discharge Diet: No Restrictions Discharge Activity: May Not Drive - for 2 weeks, May not drive while taking narcotic pain medications., May Shower, May Take a Tub Bath - in 7 days May resume sexual activity in: 4-6 weeks Lifting Restrictions: 20 pounds Additional Activity Instructions:: Nothing in the vagina for 4-6 weeks. You may return to work/school in 6 weeks. Call your doctor if your incision/area has: Continuous Slow Oozing, Sudden Increased Bleeding, Increased Pain/ Swelling, Increased Redness, Foul Smelling Discharge Call your doctor if you observe: Fever of 101 or Higher, Using more than one pad per hour - for 2 hours Suture Line Care: Avoid Pulling/Pushing, Avoid Pinching/Bending Cleanse incision/area with: Keep Dressing Clean & Dry Additional Instructions: If you experience any of the following, contact your healthcare provider. * Bleeding that soaks a pad every hour for 2 hours * Fever 100.4 or higher * Unrelieved incision or abdominal pain * Swelling, redness, discharge or bleeding from your incision or episiotomy site * Your incision begins to separate * Problems urinating (including inability to urinate or burning while urinating). * Visual changes * Severe headache * Flu-like symptoms * Pain or redness in one of both of your breasts * Pain, warmth, tenderness or swelling in your legs, especially the calf area * Frequent nausea and vomiting * Symptoms of depression or anxiety If you experience any of the following, call 911 or go to the nearest Emergency Room. * Chest pain * Problems breathing * Seizure activity * Partial or complete paralysis of a body part, slurred speech, weakness or drooping of the face, or a sudden inability to walk or hold your balance Allergies/Adverse Reactions: Allergies No Known Allergies Allergy (Verified 12/21/18 15:58) Medications to take at Discharge hydrochlorothiazide 50 mg tablet 50 mg PO DAILY 06/01/18 vitamin,calcium,qcbmurkd-lmsf-dpdpy acid tablet 1 tab PO DAILY 06/01/18 blood pressure monitor kit See Dose Instructions .ROUTE .MEDSUPPLY #1 ea 09/04/18 Naproxen [Naprosyn] 250 - 500 mg PO Q8H PRN PRN #30 tablet 12/28/18 Oxycodone HCl/Acetaminophen [Percocet 5-325] 1 - 2 tablet PO Q4H PRN PRN 7 Days #28 tablet 12/28/18 The following prescriptions were given: Oxycodone HCl/Acetaminophen [Percocet 5-325] 1 - 2 tablet PO Q4H PRN PRN 7 Days #28 tablet PRN Reason: Moderate-Severe pain Naproxen [Naprosyn] 250 - 500 mg PO Q8H PRN PRN #30 tablet PRN Reason: MILD PAIN Follow-Up: Call to make an appointment with your doctor for an incision check in 1-2 weeks. You will also need a 6 week post- follow up appointment. Test results from this visit will be discussed in further detail at your follow- up appointment, if applicable. Please Follow Up With: Dorita Foreman MD - Call to make an appointment for an incision check in 1-2 [phone] When: You will need a post- check in 6 weeks. Primary Care Physician: Cynthia Leon MD [Primary Care Provider] -
[2018-12-29] MEDS: Acetaminophen 500 MG Tablet 1000 MG PO (13:49)
[2018-12-29 13:50] VITALS: BP 148/98; RESP 18; TEMP 36.6; O2SAT 99
--- NOTE | 2018-12-30 06:52 | PCM.DC.SUM ---
Discharge Date and Diagnosis Date of Admission: 12/24/18 Date of Discharge: 12/29/18 - Primary Discharge Diagnosis chtn arrest of dilation Hospital Course and Treatment Operations: - - Primary low transverse secondary to arrest of dilation Summary of Care Provided: The patient is a 33 year old F presented for induction of labor secondary to chronic hypertension. Patient underwent Cytotec and then Norman bulb and Pitocin and proceeded to have an arrest of dilation and therefore was delivered via .patient underwent a section and had a routine recovery with a return of bowel and bladder function, was ambulating, voiding, and tolerating po, and was stable for discharge to home on POD 3. - Physical Exam Vital Signs Temp Pulse Resp BP Pulse Ox 97.8 F 84 18 148/98 H 99 12/29/18 13:50 12/29/18 08:10 12/29/18 13:50 12/29/18 13:50 12/29/18 13:50 Oxygen Delivery Method Room Air Weight: 232 lb 9.403 oz Body Mass Index (BMI) 43.2 Discharge Diet: No Restrictions Discharge Activity: May Not Drive - for 2 weeks, May not drive while taking narcotic pain medications., May Shower, May Take a Tub Bath - in 7 days May resume sexual activity in: 4-6 weeks Additional Activity Instructions:: Nothing in the vagina for 4-6 weeks. You may return to work/school in 6 weeks. Call your doctor if your incision/area has: Continuous Slow Oozing, Sudden Increased Bleeding, Increased Pain/ Swelling, Increased Redness, Foul Smelling Discharge Call your doctor if you observe: Fever of 101 or Higher, Using more than one pad per hour - for 2 hours Suture Line Care: Avoid Pulling/Pushing, Avoid Pinching/Bending Cleanse incision/area with: Keep Dressing Clean & Dry Home Medications: Medications to take at Discharge hydrochlorothiazide 50 mg tablet 50 mg PO DAILY 06/01/18 vitamin,calcium,boudldiq-hmdu-lebcy acid tablet 1 tab PO DAILY 06/01/18 blood pressure monitor kit See Dose Instructions .ROUTE .MEDSUPPLY #1 ea 09/04/18 Naproxen [Naprosyn] 250 - 500 mg PO Q8H PRN PRN #30 tablet 12/28/18 Oxycodone HCl/Acetaminophen [Percocet 5-325] 1 - 2 tablet PO Q4H PRN PRN 7 Days #28 tablet 12/28/18 Following Prescrptions Were Given to Patient: Oxycodone HCl/Acetaminophen [Percocet 5-325] 1 - 2 tablet PO Q4H PRN PRN 7 Days #28 tablet PRN Reason: Moderate-Severe pain Naproxen [Naprosyn] 250 - 500 mg PO Q8H PRN PRN #30 tablet PRN Reason: MILD PAIN Primary Care Physician: Cynthia Leon MD [Primary Care Provider] - Please Follow Up With: Dorita Foreman MD - Call to make an appointment for an incision check in 1-2 [phone] When: You will need a post- check in 6 weeks. Medical Necessity - Tobacco Use Smoking Status: Never smoker Meaningful Use Info Meaningful Use Diagnoses (Choose all that apply): None applicable
--- NOTE | 2019-01-03 16:56 | NURSING ---
No answer on follow up phone call. Left voice mail.
== END 2018-12-29 15:30 | disposition home or self-care (01) | DRG 788 ==
PROVIDERS: Admitting Provider Obstetrics & Gynecology; Family Provider Internal Medicine; PCP Internal Medicine; Referring Provider Obstetrics & Gynecology; Visit Provider Obstetrics & Gynecology
DX: O13.4 Gestational [pregnancy-induced] hypertension without significant proteinuria, complicating childbirth (principal); O61.0 Failed medical induction of labor; O99.214 Obesity complicating childbirth; E66.01 Morbid (severe) obesity due to excess calories; Z3A.38 38 weeks gestation of pregnancy; Z37.0 Single live birth
CPT/HCPCS: 59025; 59050; 82565; 84450; 84460; 84550; 85025; 85027; 85610; 85730; 86850; 86900; 99218; J7120; A4216; G0378; J2405

== ENCOUNTER → 2019-02-05 | Outpatient (CLI) | payer BC, SELFPAY ==
[2019-02-05 14:30] VITALS: BMI 43.2
[2019-03-01 11:56] LABS: HPV APTIMA, High Risk Negative (Negative)
== END | disposition home or self-care (01) ==
LOC: LABSPEC 17:06
PROVIDERS: Family Provider Internal Medicine; PCP Internal Medicine; Referring Provider Obstetrics & Gynecology; Visit Provider Obstetrics & Gynecology
DX: Z12.4 Encounter for screening for malignant neoplasm of cervix (principal)
CPT/HCPCS: 87624; 88175; G0145

== ENCOUNTER 2019-03-18 16:49 | Emergency (ER) | payer BC, SELFPAY ==
[2019-02-05 14:30] VITALS: BMI 43.2
[2019-03-18 16:50] VITALS: BP 139/95; PULSE 96; RESP 16; TEMP 36.3; BMI 42.0
--- NOTE | 2019-03-18 18:15 | CT_ITS ---
STUDY: CT ABDOMEN AND PELVIS WITH CONTRAST REASON FOR EXAM: Female, 33 years old. RIGHT lower quadrant abdominal pain RADIATION DOSAGE (If Supplied By Facility): CTDIvol = ( 17.05 ) mGy, DLP = ( 1231.55 ) mGycm TECHNIQUE: Transaxial images were obtained from the dome of the diaphragm to the symphysis pubis without oral contrast. 100ML IV/Oral Isovue 300 was administered. Sagittal and coronal images were reconstructed. Individualized dose optimization techniques were used for this CT. COMPARISON: None. FINDINGS: The visualized lung bases are unremarkable. The visualized portions of the heart are within normal limits. Normal liver. Normal gallbladder and extrahepatic biliary system. Normal spleen. Normal pancreas. Normal bilateral adrenal glands. Normal right kidney. There is a 2 mm stone in the midpole of the LEFT kidney. There is NO hydronephrosis. Normal visualized stomach. Normal small intestine. Normal colon. The appendix is visualized and appears normal. Normal abdominal aorta. Normal inferior vena cava. Normal retroperitoneum. Normal urinary bladder. Normal abdominal wall. Normal osseous structures. CT/Abdomen/Pelvis WITH Contrast IMPRESSION: There is NO acute intra-abdominal abnormality. Electronically Signed: Jose Silva MD at 20:23 EDT , Service support ,
--- NOTE | 2019-03-18 18:16 | ED.DCSUM_ITS ---
History of Present Illness Chief Complaint: Abd Pain Detail of Chief Complaint: Right lower quadrant pain Informant: Patient Onset: Today, Days Context: Gradual Onset Current Severity: Moderate Maximum Severity: Moderate Narrative: Patient presents with right lower quadrant pain is been persistent for the past 2 days. It has been gradually been worsening. She has poor appetite. She does not know fever but states she did wake up last night from sleep covered in sweat. She had a baby several months ago and has not had a menstrual cycle since that time. Denies history of ovarian cyst. No urinary symptoms. Past Medical History - Allergies and Home Meds Allergies/Adverse Reactions: Allergies No Known Allergies Allergy (Verified 02/05/19 14:10) Primary Care Physician: Cynthia Leon MD [Primary Care Provider] - Prior records reviewed: Yes Past Medical History: - - Reviewed Surgical History: - - Lives: With Family Smoking Status: Never smoker Review of Systems General: Reports: Sweats. Denies: Chills, Fever Eyes: Denies: Visual changes - bilaterally ENT: Denies: Bilateral ear pain Cardiovascular: Denies: Chest pain Respiratory: Denies: Dyspnea Gastrointestinal: Reports: Abdominal pain. Denies: Vomiting, Diarrhea Genitourinary: Denies: Dysuria, Hematuria Musculoskeletal: Denies: Back pain Skin: Denies: Rash Endocrine: Denies: Polyuria, Polydipsia Hematologic: Denies: Easy bruising Allergy: Denies: Uticaria Physical Exam Vital Signs/Narrative: Vital Signs Temp Pulse Resp BP 03/18/19 16:50 97.4 F L 96 16 139/95 H Inital Vital Signs reviewed: Yes General: Well nourished, Well developed Head: Normocephalic ENT: Moist mucous membranes Cardiovascular: Regular rate, Regular rhythm Respiratory: No distress, CTA bilaterally Abdomen: Soft, Normal bowel sounds, Tender - Mild to moderate tenderness in the right lower quadrant.. Negative for: Guarding, Rebound tenderness Extremities: Nontender Skin: Normal color Neurological: Alert, Oriented x3 Psychological: Normal affect Diagnostic/Tx/Re-eval Impressions Abdomen/Pelvis CT 03/18/19 18:15 IMPRESSION: There is NO acute intra-abdominal abnormality. Electronically Signed: Jose Silva MD at 20:23 EDT , Service support , 03/18/19 18:15 Abdomen/Pelvis WITH Contrast [CT] Stat Laboratory Results 03/18/19 03/18/19 03/18/19 18:34 18:34 18:34 WBC 7.8 RBC 4.86 Hgb 12.6 Hct 38.3 MCV 78.8 L MCH 25.9 L MCHC 32.9 RDW Std Deviation 34.5 L RDW Coeff of Vito 12.2 Plt Count 281 MPV 10.1 Immature Gran % (Auto) 0.300 Neut % (Auto) 63.8 Lymph % (Auto) 30.2 [place] % (Auto) 5.0 Eos % (Auto) 0.6 Baso % (Auto) 0.1 Absolute Neuts (auto) 5.0 Absolute Lymphs (auto) 2.35 Nucleated RBC % 0 Sodium 137 Potassium 2.9 L Chloride 100 Carbon Dioxide 29.0 Anion Gap 8 BUN 15 Creatinine 0.66 Estim Creat Clear Calc 93.20 Est GFR (MDRD) Af Amer 133 Est GFR (MDRD) Non-Af 110 BUN/Creatinine Ratio 22.7 H Glucose 78 Calcium 9.4 Serum , Qual NEGATIVE Urine Color Urine Clarity Urine pH Ur Specific [place] Urine Protein Urine Glucose (UA) Urine Ketones Urine Occult Blood Urine Nitrite Urine Bilirubin Urine Urobilinogen Ur Leukocyte Esterase Urine RBC Urine WBC Ur Squamous Epith Cells Urine Bacteria Urine Mucus 03/18/19 19:45 WBC RBC Hgb Hct MCV MCH MCHC RDW Std Deviation RDW Coeff of Vito Plt Count MPV Immature Gran % (Auto) Neut % (Auto) Lymph % (Auto) [place] % (Auto) Eos % (Auto) Baso % (Auto) Absolute Neuts (auto) Absolute Lymphs (auto) Nucleated RBC % Sodium Potassium Chloride Carbon Dioxide Anion Gap BUN Creatinine Estim Creat Clear Calc Est GFR (MDRD) Af Amer Est GFR (MDRD) Non-Af BUN/Creatinine Ratio Glucose Calcium Serum , Qual Urine Color Yellow Urine Clarity Clear Urine pH 7.0 Ur Specific [place] 1.010 Urine Protein Negative Urine Glucose (UA) Normal Urine Ketones Negative Urine Occult Blood Negative Urine Nitrite Negative Urine Bilirubin Negative Urine Urobilinogen Normal Ur Leukocyte Esterase 500 H Urine RBC 0 SEEN Urine WBC 5-10 SEEN Ur Squamous Epith Cells 0 SEEN Urine Bacteria 0 SEEN Urine Mucus 0 SEEN - Medical Decision Making Patient was given morphine, Zofran, and IV fluids. On repeat evaluation she is resting comfortably. I discussed her test results with her. Her potassium is low at 2.9 and will be replaced. At this time I do not see an acute cause of her right lower quadrant pain. She did have a in December and she may have some scar tissue developing and pulling in that area. They do not see any indication of ovarian cyst or appendicitis. Patient has quite comfortable on exam and I do not have suspicion of ovarian torsion. Patient will continue to monitor her symptoms. I asked her to follow-up with her PCP this week and if symptoms worsen or any concerns arise at all she is to return for repeat exam. ED Disposition - Plan for ED Patient: Disposition: Home or Assisted Living Diagnosis: Abdominal pain, Hypokalemia Instructions: ABDOMINAL PAIN, Unknown Cause, (Female), Hypokalemia Prescriptions: Potassium Chloride [K-Dur] 20 meq PO BID #10 tablet Referrals: Cynthia Leon MD [Primary Care Provider] - 3-5 Days
[2019-03-18] MEDS: Morphine 4 MG/ML Syringe IV (18:37)
[2019-03-18] MEDS: Ondansetron 4 MG/2 ML Vial IV (18:37)
[2019-03-18] MEDS: 0.9% Normal Saline 1,000 ML 150 ML IV (18:37)
[2019-03-18 18:41] LABS: Absolute Lymphocyte Count 2.35 X10^3/uL (0.83-4.51); Basophil# 0.01 X10^3/uL; Basophil% 0.1 % (0-1); Eosinophil# 0.05 X10^3/uL; Eosinophils% 0.6 % (0-5); Hematocrit 38.3 % (37-47); Hemoglobin 12.6 g/dL (12.0-15.0); Lymphocyte # 2.35 X10^3/ul (4.0); Lymphocyte % 30.2 % (19-41); Mean Corp Hgb Conc 32.9 g/dL (32-36); Mean Corpuscular Hgb 25.9 pg (27.0-32.0); Mean Corpuscular Volume 78.8 fL (81-99); Mean Platelet Vol. 10.1 fl (6.2-12.0); Monocyte# 0.39 X10^3/uL; NRBC Flagged by Analyzer 0 % (0-5); Neutrophil # 4.96 X10^3/uL (2.7-7.7); Neutrophil % 63.8 % (47-70); Platelet Count 281 K/mm3 (150-450); RBC Distribution Width CV 12.2 % (11.6-14.6); RBC Distribution Width SD 34.5 fl (35.1-43.9); Red Blood Count 4.86 M/mm3 (4.2-5.4); White Blood Count 7.8 K/mm3 (4.4-11.0)
[2019-03-18 18:51] LABS: Internal QC Validated? YES +Cl - CLEAR BKGD; Pregnancy, Serum, hCG Quali. NEGATIVE Negative
[2019-03-18 18:54] VITALS: BP 121/95; PULSE 78; RESP 16; O2SAT 98
[2019-03-18 18:55] LABS: Anion Gap 8 (5-15); BUN 15 mg/dL (7-18); BUN/Creat Ratio 22.7 RATIO (10-20); Calcium,Total 9.4 mg/dL (8.5-10.1); Chloride 100 mmol/L (98-107); Creatinine, Serum 0.66 mg/dL (0.55-1.02); EST Glomerular Filtration Rate 110 mL/min (>60); Est Glom Filt Rate - Afr Amer 133 mL/min (>60); Glucose 78 mg/dL (74-106); Potassium 2.9 mmol/L (3.5-5.1); Sodium Level 137 mmol/L (136-145)
[2019-03-18 19:55] LABS: Bacteria 0 SEEN /hpf (None Seen); Mucous, Urine 0 SEEN /hpf (<or=2+); Red Blood Cells-Urine 0 SEEN /hpf (0-5); Squamous Epithelial Cells - UA 0 SEEN /hpf (5-10)
[2019-03-18 19:57] LABS: Color, Urine Yellow (Yellow); Glucose, Dipstick Normal (Normal); Ketone-Dipstick Negative (Negative); Leukocyte Esterase-Dipstick 500 /ul (Negative); Nitrite-Dipstick Negative (Negative); Occult Blood-Urine Negative /ul (Negative); Protein-Dipstick Negative (Negative); Urine Bilirubin Dipstick Negative (Negative); Urine Clarity Clear (Clear); Urine Urobilinogen Normal (Normal)
[2019-03-18 20:08] LABS: White Blood Cells 5-10 SEEN /hpf (0-5)
[2019-03-18 21:22] VITALS: BP 128/79; PULSE 89; RESP 16; O2SAT 99
== END 2019-03-18 21:27 | disposition home or self-care (01) ==
PROVIDERS: Emergency Provider Emergency Medicine; Family Provider Internal Medicine; PCP Internal Medicine
DX: R10.31 Right lower quadrant pain (principal); E87.6 Hypokalemia
CPT/HCPCS: 74177; 80048; 81001; 84703; 85025; 96361; 96374; 96375; 99284; J7030; Q9967; A4216; J2405

== ENCOUNTER → 2020-04-30 | Outpatient (CLI) | payer BC, SELFPAY ==
[2020-03-19 10:27] VITALS: BMI 42.0
== END | disposition home or self-care (01) ==
LOC: MTDU 17:17
PROVIDERS: PCP Internal Medicine
DX: B34.9 Viral infection, unspecified (principal); Z71.89 Other specified counseling
CPT/HCPCS: 87635; C9803; U0003

== ENCOUNTER 2020-12-06 02:41 | Emergency (ER) | payer BC, SELFPAY ==
[2020-03-19 10:27] VITALS: BMI 42.0
[2020-12-06 02:42] VITALS: BP 151/101; PULSE 139; RESP 20; TEMP 37.1; O2SAT 97; BMI 43.1
[2020-12-06 02:45] VITALS: BP 151/101; PULSE 125; RESP 14; TEMP 37.1; O2SAT 97
--- NOTE | 2020-12-06 02:50 | EKG12_ITS ---
Test Reason : SOB Blood Pressure : / mmHG Vent. Rate : 130 BPM Atrial Rate : 130 BPM P-R Int : 150 ms QRS Dur : 080 ms QT Int : 286 ms P-R-T Axes : 045 -06 050 degrees QTc Int : 420 ms Sinus tachycardia Abnormal ECG Confirmed by MIREYA MUNOZ, GREGORIO ([id number]), story editor JOSE SUNG ([id number]) on 12/09/2020 8:48:41 AM Referred By: MEAGHAN Confirmed By:GREGORIO GOMES MD
--- NOTE | 2020-12-06 02:50 | RAD_ITS ---
STUDY: X-RAY CHEST REASON FOR EXAM: Female, 35 years old. sob TECHNIQUE: Single AP portable view of the chest. COMPARISON: None. FINDINGS: There are no confluent pulmonary infiltrates. There is no demonstrated pleural abnormality. Normal size heart. Normal mediastinum and tory. Normal visualized aortic arch and descending thoracic aorta. There are no demonstrated acute fractures or destructive bone lesions. There is no demonstrated abnormality of the visualized soft tissue structures of the upper abdomen. RAD/Chest 1 View (Portable) IMPRESSION: Normal x-ray examination of the chest. Electronically Signed: Raad Gutierrez MD at 3:21 EDT , Service support ,
--- NOTE | 2020-12-06 02:51 | ED.DCSUM_ITS ---
History of Present Illness Chief Complaint: Chest Pain Informant: Patient Onset: Days Context: Gradual Onset Timing: Intermittent Current Severity: Moderate Maximum Severity: Moderate Narrative: Patient is a pleasant 35-year-old female with medical history significant for hypertension who presents to the emergency department chest pain. She states that she has been having some pain in her substernal area off and on for the past 3 days. She states tonight, got worse. She also had some tingling in her arm. She states that she walked to the bathroom and felt short of breath. The pain did not radiate to her neck or jaw. Did not seem to be worse with exertion. She states she did have something similar about 2 years ago, took an extra blood pressure medication, and it seemed to go away. She has no history of cardiovascular disease. She did have a stress test in 2018 which was normal. She does not know her family history as she was adopted. She has no history of pulmonary embolus or DVT. Prior similar symptoms: Yes Recent Illness/Hospitalization: No Past Medical History - Allergies and Home Meds Allergies/Adverse Reactions: Allergies No Known Allergies Allergy (Verified 12/06/20 02:45) Primary Care Physician: Cynthia Leon MD [Primary Care Provider] - Prior records reviewed: Yes Past Medical History: - - Hypertension Surgical History: - - Smoking Status: Never smoker Review of Systems General: Denies: Chills, Fever, Sweats Eyes: Denies: Visual changes - bilaterally, Diplopia ENT: Denies: Rhinorrhea, Sore throat Cardiovascular: Reports: Chest pain. Denies: Palpitations Respiratory: Reports: Dyspnea. Denies: Cough, Dyspnea on exertion Gastrointestinal: Denies: Abdominal pain, Nausea, Vomiting, Diarrhea, Melena, Hematochezia Genitourinary: Denies: Dysuria, Hematuria, Frequency Musculoskeletal: Denies: Back pain, Extremity Pain Skin: Denies: Rash, Wounds Neurological: Denies: Headache, Weakness, Numbness Physical Exam Vital Signs/Narrative: Vital Signs Temp Pulse Resp BP Pulse Ox 12/06/20 02:45 98.8 F 125 H 14 151/101 H 97 12/06/20 02:42 98.8 F 139 H 20 H 151/101 H 97 Inital Vital Signs reviewed: Yes General: Well nourished, Well developed, No Acute Distress Head: Normocephalic, Atraumatic Eyes: Perrl, EOMI ENT: Moist mucous membranes, No rhinorrhea Neck: Supple, Nontender Cardiovascular: No murmurs, Tachycardia Respiratory: No distress, CTA bilaterally, Chest nontender Abdomen: Soft, Nontender, Nondistended, Normal bowel sounds Back: Nontender, Normal Inspection Extremities: Nontender, No edema Skin: Normal color, No rash Neurological: Alert, Oriented x3, Cranial nerves II-XII grossly intact, Normal Strength, Normal Sensation Psychological: Normal affect, Normal Mood Diagnostic/Tx/Re-eval Chest X-Ray - ED: 1 View, Read by ED Physician, Normal, Heart, Lungs, Mediastinum, Bony Structures Clinical Impression(s) from Imaging Studies Chest X-Ray 12/06/20 02:50 IMPRESSION: Normal x-ray examination of the chest. Electronically Signed: Raad Gutierrez MD at 3:21 EDT , Service support , Abnormal Lab Results 12/06/20 12/06/20 12/06/20 02:50 02:50 02:50 WBC 7.8 RBC 5.26 Hgb 13.4 Hct 42.2 MCV 80.2 L MCH 25.5 L MCHC 31.8 L RDW Std Deviation 37.9 RDW Coeff of Vito 13.1 Plt Count 295 MPV 9.5 Immature Gran % (Auto) 0.100 Neut % (Auto) 54.2 Lymph % (Auto) 37.6 [place] % (Auto) 6.3 Eos % (Auto) 1.4 Baso % (Auto) 0.4 Absolute Neuts (auto) 4.2 Absolute Lymphs (auto) 2.94 Nucleated RBC % 0 D-Dimer Quant (PE/DVT) 0.36 Sodium 139 Potassium 2.7 L* Chloride 104 Carbon Dioxide 27.0 Anion Gap 8 BUN 13 Creatinine 0.69 Estim Creat Clear Calc 87.51 Est GFR (MDRD) Af Amer 125 Est GFR (MDRD) Non-Af 104 BUN/Creatinine Ratio 18.8 Glucose 128 H Calcium 8.6 Total Bilirubin 0.20 AST 11 L ALT 25 Alkaline Phosphatase 103 Troponin I < 0.015 B-Natriuretic Peptide Total Protein 8.1 Albumin 3.5 Globulin 4.6 H Albumin/Globulin Ratio 0.8 L Serum , Qual 12/06/20 12/06/20 02:50 02:50 WBC RBC Hgb Hct MCV MCH MCHC RDW Std Deviation RDW Coeff of Vito Plt Count MPV Immature Gran % (Auto) Neut % (Auto) Lymph % (Auto) [place] % (Auto) Eos % (Auto) Baso % (Auto) Absolute Neuts (auto) Absolute Lymphs (auto) Nucleated RBC % D-Dimer Quant (PE/DVT) Sodium Potassium Chloride Carbon Dioxide Anion Gap BUN Creatinine Estim Creat Clear Calc Est GFR (MDRD) Af Amer Est GFR (MDRD) Non-Af BUN/Creatinine Ratio Glucose Calcium Total Bilirubin AST ALT Alkaline Phosphatase Troponin I B-Natriuretic Peptide 5.0 Total Protein Albumin Globulin Albumin/Globulin Ratio Serum , Qual NEGATIVE - Rhythm Strip Rhythm Strip: Sinus Tach Rate: 110 Ectopy: None, PVC(s) - EKG Initial EKG Interpretation: No Acute Injury Pattern, Sinus Tachycardia Prior: Unchanged - Medical Decision Making Patient presents to the emergency department chest pain and exertional shortness of breath. She states that the pain is sharp in the central chest. She was also complaining of some numbness. Her only risk factor for coronary vascular disease is hypertension. EKG was obtained on patient arrival. It was sinus tachycardia. There is no acute ischemic change. There is normal axis and intervals. Broad metabolic work-up was pursued. With her tachycardia, I did want to rule out pulmonary embolus. Patient underwent chest x-ray. Is reviewed both myself and the radiologist. There is no focal infiltrative process. There is no enlarged cardiac silhouette. Screening labs show normal cardiac enzymes. D-dimer was negative. The patient is hypokalemic. I do feel this is likely contributing to some of her symptoms. She is not had any vomiting. The patient's potassium is replaced orally. I will keep her on replacement for the next few days and have her follow-up for recheck. I do not feel that she requires hospitalization at this time. She has a heart score of 2. She is comfortable with this plan of care and we discharged home. Impression 1. Atypical chest pain 2. Hypokalemia ED Disposition - Plan for ED Patient: Instructions: ED Chest Pain, Uncertain Cause, ED Hypokalemia Prescriptions: Potassium Chloride [Klor-Con M20] 20 meq PO DAILY #7 tab.[email or web address] Prescription Printed Referrals: Cynthia Leon MD [Primary Care Provider] -
[2020-12-06 02:59] LABS: Absolute Lymphocyte Count 2.94 X10^3/uL (0.83-4.51); Absolute Neutrophil Count 4.2 X10^3/uL (2.0-7.7); Basophil# 0.03 X10^3/uL; Basophil% 0.4 % (0-1); Eosinophil# 0.11 X10^3/uL; Eosinophils% 1.4 % (0-5); Hematocrit 42.2 % (37-47); Hemoglobin 13.4 g/dL (12.0-15.0); Lymphocyte # 2.94 X10^3/ul (0.83-4.51); Lymphocyte % 37.6 % (19-41); Mean Corp Hgb Conc 31.8 g/dL (32-36); Mean Corpuscular Hgb 25.5 pg (27.0-32.0); Mean Corpuscular Volume 80.2 fL (81-99); Mean Platelet Vol. 9.5 fl (6.2-12.0); Monocyte# 0.49 X10^3/uL; Monocyte% 6.3 % (0-10); NRBC Flagged by Analyzer 0 % (0-5); Neutrophil # 4.24 X10^3/uL (2.7-7.7); Neutrophil % 54.2 % (47-70); Platelet Count 295 K/mm3 (150-450); RBC Distribution Width CV 13.1 % (11.6-14.6); RBC Distribution Width SD 37.9 fl (35.1-43.9); Red Blood Count 5.26 M/mm3 (4.2-5.4); White Blood Count 7.8 K/mm3 (4.4-11.0)
[2020-12-06 03:06] LABS: D-Dimer Quantitative (DVT/PE) 0.36 FEU/ug/m (0.27-0.49)
[2020-12-06 03:16] LABS: ALB/GLOB Ratio 0.8 RATIO (0.9-2.4); AST(SGOT) 11 U/L (15-37); Alanine Aminotransfer ALT/SGPT 25 U/L (13-56); Albumin, Serum 3.5 g/dL (3.2-5.0); Alkaline Phosphatase 103 U/L (45-117); Anion Gap 8 (5-15); BUN 13 mg/dL (7-18); BUN/Creat Ratio 18.8 RATIO (10-20); Calcium,Total 8.6 mg/dL (8.5-10.1); Chloride 104 mmol/L (98-107); Creatinine, Serum 0.69 mg/dL (0.55-1.02); EST Glomerular Filtration Rate 104 mL/min (>60); Est Glom Filt Rate - Afr Amer 125 mL/min (>60); Estimated Creatinine Clearance 87.51 ml/min; Globulin 4.6 g/dL (2.2-4.2); Glucose 128 mg/dL (74-106); Potassium 2.7 mmol/L (3.5-5.1); Protein, Total 8.1 g/dL (6.4-8.2); Sodium Level 139 mmol/L (136-145)
[2020-12-06 03:17] LABS: Internal QC Validated? YES +Cl - CLEAR BKGD; Pregnancy, Serum, hCG Quali. NEGATIVE Negative
[2020-12-06] MEDS: Potassium Chloride Oral Tablet 20 MEQ 60 MEQ PO (03:21)
[2020-12-06] MEDS: Ondansetron 4 MG/2 ML Vial IV (03:21)
[2020-12-06 03:55] VITALS: BP 149/98; PULSE 99; RESP 18; O2SAT 96
== END 2020-12-06 04:03 | disposition home or self-care (01) ==
LOC: ED 02:54
PROVIDERS: Emergency Provider Emergency Medicine; PCP Internal Medicine
DX: R07.89 Other chest pain (principal); E87.6 Hypokalemia; R06.02 Shortness of breath; I10 Essential (primary) hypertension; Z79.899 Other long term (current) drug therapy
CPT/HCPCS: 71045; 80053; 83880; 84484; 84703; 85025; 85379; 93005; 96361; 96374; 99285; J7040; A4216; J2405

== ENCOUNTER 2021-01-29 22:34 | Emergency (ER) | payer BC, SELFPAY ==
[2021-01-29 22:35] VITALS: BP 166/105; PULSE 103; RESP 18; TEMP 36.2; O2SAT 97; BMI 41.5
--- NOTE | 2021-01-29 22:57 | EDS_ITS ---
HPI HPI - Female History of Present Illness Chief Complaint: Female C/O PFSH PFSH Medical History Hypertension Home Medications amlodipine 10 mg tablet 10 mg PO DAILY 03/19/20 [History Last Taken Unknown] Potassium Chloride [Klor-Con M20] 20 meq PO DAILY #7 tab.er.prt 12/06/20 [Rx Last Taken Unknown] Allergy/AdvReac Type Severity Reaction Status Date / Time No Known Allergies Allergy Verified 12/06/20 02:45 Surgical History S/P tonsillectomy and adenoidectomy Social History (Updated 03/19/20 @ 10:40 by Rosanna Peñaloza [employer] SALES REPRESENTATIVE, [employer] SALES REPRESENTATIVE-C) adopted: Yes Smoking Status: Never smoker alcohol intake: never substance use type: does not use what type of physical activity do you participate in: other details: crossfit frequency: 5-6 times per week seatbelt use: always do you feel safe at home: Yes additional social history: Fredy Odonnell EXAM Physical Exam Const Vital Signs: 01/29/21 22:35 Temperature 97.2 F L Temperature Source Temporal Pulse Rate 103 H Respiratory Rate 18 Blood Pressure 166/105 H Blood Pressure Mean 125 Pulse Ox 97 Oxygen Delivery Method Room Air Discharge Plan Triage Chief Complaint: Female C/O ED Provider: Manan Vaz Dx/Rx/DC Orders Prescriptions: No Action amlodipine 10 mg tablet 10 mg PO DAILY RF: 0 Potassium Chloride [Klor-Con M20] 20 MEQ Tab.Er.Prt 20 meq PO DAILY Qty: 7 RF: 0 Primary Care Provider: Cynthia Leon
--- NOTE | 2021-01-29 23:17 | ED.VIS.FEGU ---
HPI HPI - Female History of Present Illness Chief Complaint: Female C/O Narrative Narrative: 35-year-old female presenting with dysuria. She states she has had this on and off for about a month. She was seen at [facility] urgent care a few times for her symptoms. She complains of dysuria and urinary frequency. She was initially treated for UTI and then developed a yeast infection. She was then treated for the yeast infection however she returns again with urinary frequency and dysuria. She describes pelvic discomfort that is intermittent. She states when it comes it feels like it radiates to the bilateral flanks. PFSH PFS Medical History Hypertension Home Medications amlodipine 10 mg tablet 10 mg PO DAILY 03/19/20 [History Last Taken Unknown] Potassium Chloride [Klor-Con M20] 20 meq PO DAILY #7 tab.er.prt 12/06/20 [Rx Last Taken Unknown] Allergy/AdvReac Type Severity Reaction Status Date / Time No Known Allergies Allergy Verified 12/06/20 02:45 Surgical History S/P tonsillectomy and adenoidectomy Social History adopted: Yes Smoking Status: Never smoker alcohol intake: never substance use type: does not use what type of physical activity do you participate in: other details: crossfit frequency: 5-6 times per week seatbelt use: always do you feel safe at home: Yes additional social history: Fredy Odonnell [facility] ED Constitutional Constitutional ED: Denies chills, fever(s) or subjective Eyes Eyes: Denies blurry vision or change in vision ENT ENT ED: Denies ear pain or rhinorrhea Cardiovascular Cardiovascular: Denies chest pain or palpitations Respiratory/Chest Respiratory/Chest: Denies cough or dyspnea Gastrointestinal Gastrointestinal: Reports abdominal pain Genitourinary Genitourinary ED: Reports dysuria and urinary frequency Musculoskeletal Musculoskeletal: Denies arthralgias or myalgias Integumentary Denies abscess or rash Neurologic Neurologic: Denies headache(s), paresthesias or weakness Psychiatric Psychiatric: Denies anxiety or depression EXAM Physical Exam Const Vital Signs: 01/29/21 22:35 Temperature 97.2 F L Temperature Source Temporal Pulse Rate 103 H Respiratory Rate 18 Blood Pressure 166/105 H Blood Pressure Mean 125 Pulse Ox 97 Oxygen Delivery Method Room Air Positive well nourished General Appearance ED: NAD HEENT Negative for trauma or tenderness Eyes PERRL and EOMs intact bilaterally Resp normal respiratory effort and clear to auscultation bilaterally Cardio regular rate and regular rhythm GI GI Narrative: Central lower abdominal tenderness in the midline. Patient has CVA tenderness bilaterally. Back/Spine General Back: CVA tenderness bilateral Lumbar Spine / Lower Back: Negative for lumbar spinal tenderness Extremity normal to inspection and full ROM Neuro oriented x3 Sensorium / Orientation: alert and oriented to person Psych mental status grossly normal Skin no rashes or lesions noted and no wounds MDM MDM MDM Narrative Medical decision making narrative: Patient presenting with dysuria and reported hematuria from previous urinalysis. She also states that she had a negative test. Today I did do blood work which shows a normal CBC and BMP. Her urinalysis is negative for infection but there is 50 occult blood. Patient states she is not on her menstrual cycle currently. I did obtain CT abdomen pelvis without IV contrast to check for a kidney stone however this is not present. Radiologist reads there are no other acute processes in the CT. I recommended that she follow-up with urology and I gave her a referral. 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 Patient is stable for discharge home at this time. Impression: 1. Hematuria 2. Dysuria Lab Data Labs: Laboratory Results - last 24 hr 01/29/21 01/29/21 01/29/21 23:30 23:30 23:30 WBC 6.3 RBC 5.19 Hgb 13.1 Hct 40.5 MCV 78.0 L MCH 25.2 L MCHC 32.3 RDW Std Deviation 36.7 RDW Coeff of Vito 13.0 Plt Count 309 MPV 9.5 Immature Gran % (Auto) 0.300 Neut % (Auto) 56.5 Lymph % (Auto) 34.4 Clayton % (Auto) 7.6 Eos % (Auto) 0.9 Baso % (Auto) 0.3 Absolute Neuts (auto) 3.6 Absolute Lymphs (auto) 2.18 Nucleated RBC % 0 Sodium 138 Potassium 3.0 L Chloride 104 Carbon Dioxide 28.0 Anion Gap 6 BUN 12 Creatinine 0.75 Estim Creat Clear Calc 80.51 Est GFR (MDRD) Af Amer 113 Est GFR (MDRD) Non-Af 94 BUN/Creatinine Ratio 15.9 Glucose 108 H Calcium 8.9 Total Bilirubin 0.20 AST 12 L ALT 27 Alkaline Phosphatase 94 Total Protein 7.9 Albumin 3.5 Globulin 4.4 H Albumin/Globulin Ratio 0.8 L Urine Color Yellow Urine Clarity Clear Urine pH 6.5 Ur Specific [place] 1.015 Urine Protein 15 H Urine Glucose (UA) Normal Urine Ketones Negative Urine Occult Blood 50 H Urine Nitrite Negative Urine Bilirubin Negative Urine Urobilinogen 1 H Ur Leukocyte Esterase Negative Urine RBC 0 SEEN Urine WBC 0 SEEN Ur Squamous Epith Cells 0 SEEN Urine Bacteria 0 SEEN Urine Mucus 0 SEEN Radiography Diagnostic Testing: Radiology Impression Abdomen/Pelvis CT 01/30/21 23:57 IMPRESSION: No acute process within the abdomen or pelvis. Specifically, no acute appendicitis or bowel obstruction. Electronically Signed: Katalina Klein MD at 0:48 EDT , Service support , Discharge Plan Triage Chief Complaint: Female C/O ED Provider: Manan Vaz Dx/Rx/DC Orders Instructions: ED Dysuria, Uncertain Cause (Adult) Prescriptions: No Action amlodipine 10 mg tablet 10 mg PO DAILY RF: 0 Potassium Chloride [Klor-Con M20] 20 MEQ Tab.Er.Prt 20 meq PO DAILY Qty: 7 RF: 0 Primary Care Provider: Cynthia Leon Referrals: Cynthia Leon MD [Primary Care Provider] - Keaton Marte MD [STAFF PHYSICIAN] - As soon as possible Disposition Disposition: Home, self care
[2021-01-29] MEDS: Ketorolac 15 MG/ML Vial IV (23:28)
[2021-01-29 23:42] LABS: Bacteria 0 SEEN /hpf (None Seen); Mucous, Urine 0 SEEN /hpf (<or=2+); Red Blood Cells-Urine 0 SEEN /hpf (0-5); Squamous Epithelial Cells - UA 0 SEEN /hpf (5-10); White Blood Cells 0 SEEN /hpf (0-5)
[2021-01-29 23:43] LABS: Absolute Lymphocyte Count 2.18 X10^3/uL (0.83-4.51); Absolute Neutrophil Count 3.6 X10^3/uL (2.0-7.7); Basophil# 0.02 X10^3/uL; Basophil% 0.3 % (0-1); Color, Urine Yellow (Yellow); Eosinophil# 0.06 X10^3/uL; Eosinophils% 0.9 % (0-5); Glucose, Dipstick Normal (Normal); Hematocrit 40.5 % (37-47); Hemoglobin 13.1 g/dL (12.0-15.0); Ketone-Dipstick Negative (Negative); Leukocyte Esterase-Dipstick Negative /ul (Negative); Lymphocyte # 2.18 X10^3/ul (0.83-4.51); Lymphocyte % 34.4 % (19-41); Mean Corp Hgb Conc 32.3 g/dL (32-36); Mean Corpuscular Hgb 25.2 pg (27.0-32.0); Mean Platelet Vol. 9.5 fl (6.2-12.0); Monocyte# 0.48 X10^3/uL; Monocyte% 7.6 % (0-10); NRBC Flagged by Analyzer 0 % (0-5); Neutrophil # 3.57 X10^3/uL (2.7-7.7); Neutrophil % 56.5 % (47-70); Nitrite-Dipstick Negative (Negative); Occult Blood-Urine 50 /ul (Negative); Platelet Count 309 K/mm3 (150-450); Protein-Dipstick 15 mg/dl (Negative); RBC Distribution Width SD 36.7 fl (35.1-43.9); Red Blood Count 5.19 M/mm3 (4.2-5.4); Specific Gravity, Urine 1.015 (1.002-1.030); Urine Bilirubin Dipstick Negative (Negative); Urine Clarity Clear (Clear); Urine Urobilinogen 1 mg/dl (Normal); Urine pH 6.5 (5.0 - 8.0); White Blood Count 6.3 K/mm3 (4.4-11.0)
[2021-01-29 23:59] LABS: ALB/GLOB Ratio 0.8 RATIO (0.9-2.4); AST(SGOT) 12 U/L (15-37); Alanine Aminotransfer ALT/SGPT 27 U/L (13-56); Albumin, Serum 3.5 g/dL (3.2-5.0); Alkaline Phosphatase 94 U/L (45-117); Anion Gap 6 (5-15); BUN 12 mg/dL (7-18); BUN/Creat Ratio 15.9 RATIO (10-20); Calcium,Total 8.9 mg/dL (8.5-10.1); Chloride 104 mmol/L (98-107); Creatinine, Serum 0.75 mg/dL (0.55-1.02); EST Glomerular Filtration Rate 94 mL/min (>60); Est Glom Filt Rate - Afr Amer 113 mL/min (>60); Estimated Creatinine Clearance 80.51 ml/min; Globulin 4.4 g/dL (2.2-4.2); Glucose 108 mg/dL (74-106); Protein, Total 7.9 g/dL (6.4-8.2); Sodium Level 138 mmol/L (136-145)
[2021-01-30 01:00] VITALS: BP 148/62; PULSE 87; RESP 18
--- NOTE | 2021-01-30 23:57 | CT_ITS ---
STUDY: CT ABDOMEN AND PELVIS WITHOUT CONTRAST REASON FOR EXAM: Female, 35 years old. abdominal pain RADIATION DOSAGE (If Supplied By Facility): CTDIvol = ( 19.44 ) mGy, DLP = ( 905.67 ) mGycm TECHNIQUE: Transaxial images were obtained from the dome of the diaphragm to the symphysis pubis without oral contrast, and without intravenous contrast. Sagittal and coronal images were reconstructed. Individualized dose optimization techniques were used for this CT. COMPARISON: . FINDINGS: The visualized lung bases are unremarkable. The visualized portions of the heart are within normal limits. Normal liver. Normal gallbladder and extrahepatic biliary system. Normal spleen. Normal pancreas. Normal bilateral adrenal glands. Normal right kidney. Normal left kidney. Normal visualized stomach. Normal small intestine. There is a diverticulum at the level of the ascending colon/cecal region otherwise unremarkable colon. The appendix is visualized and appears normal. Normal abdominal aorta. Normal inferior vena cava. Normal retroperitoneum. Normal urinary bladder. Normal abdominal wall. Normal osseous structures. CT/Abdomen/Pelvis without Cont IMPRESSION: No acute process within the abdomen or pelvis. Specifically, no acute appendicitis or bowel obstruction. Electronically Signed: Katalina Klein MD at 0:48 EDT , Service support ,
== END 2021-01-30 01:01 | disposition home or self-care (01) ==
PROVIDERS: Emergency Provider Student in an Organized Health Care Education/Training Program; PCP Internal Medicine
DX: R31.9 Hematuria, unspecified (principal); R30.0 Dysuria
CPT/HCPCS: 74176; 80053; 81001; 85025; 96374; 99283; A4216

== ENCOUNTER → 2021-02-11 | Outpatient (CLI) | payer BC, SELFPAY ==
[2021-02-11 11:54] VITALS: BMI 41.5
== END | disposition home or self-care (01) ==
PROVIDERS: Referring Provider Obstetrics & Gynecology; Visit Provider Obstetrics & Gynecology
DX: R10.2 Pelvic and perineal pain (principal)
CPT/HCPCS: 87086; 87088

== ENCOUNTER → 2021-02-19 08:46 | Outpatient (CLI) | payer BC, SELFPAY ==
[2021-02-11 11:54] VITALS: BMI 41.5
--- NOTE | 2021-02-19 08:53 | US_ITS ---
STUDY: ULTRASOUND OF THE FEMALE PELVIS - COMPLETE REASON FOR EXAM: Female, 35 years old. Pelvic pain LMP: 02/04/2021. TECHNIQUE: Transabdominal and Transvaginal TECHNICAL QUALITY: Adequate. COMPARISON: None. FINDINGS: The uterus is anteverted and is tilted to the right side of the pelvis. The uterus measures 6.8 cm x 3.9 cm x 3 cm. Normal uterine cervix. The endometrium measures 5 mm in thickness, and is hyperechoic. There is no demonstrated endometrial mass. There is no demonstrated myometrial mass. I.U.D. - The patient does not have an I.U.D. The right ovary is visualized. The right ovary measures 1.9 cm x 1.8 cm x 1.8 cm. There is no right ovarian cyst or ovarian mass. There is no visualized right adnexal mass or complex lesion. There is normal arterial and normal venous vascularity. The left ovary is visualized. The left ovary measures 1.9 cm x 1.87 x 1.5 cm. There is no left ovarian cyst or ovarian mass. There is no visualized left adnexal mass or complex lesion. There is normal arterial and normal venous vascularity. There is no fluid in the cul-de-sac. The pre void volume of the bladder was 56.3 ml. US/Transvaginal Non- IMPRESSION: Normal female pelvis. Electronically Signed: Shashank Woodward MD at 13:42 EDT , Service support ,
--- NOTE | 2021-02-19 08:53 | US_ITS ---
STUDY: ULTRASOUND OF THE FEMALE PELVIS - COMPLETE REASON FOR EXAM: Female, 35 years old. Pelvic pain LMP: 02/04/2021. TECHNIQUE: Transabdominal and Transvaginal TECHNICAL QUALITY: Adequate. COMPARISON: None. FINDINGS: The uterus is anteverted and is tilted to the right side of the pelvis. The uterus measures 6.8 cm x 3.9 cm x 3 cm. Normal uterine cervix. The endometrium measures 5 mm in thickness, and is hyperechoic. There is no demonstrated endometrial mass. There is no demonstrated myometrial mass. I.U.D. - The patient does not have an I.U.D. The right ovary is visualized. The right ovary measures 1.9 cm x 1.8 cm x 1.8 cm. There is no right ovarian cyst or ovarian mass. There is no visualized right adnexal mass or complex lesion. There is normal arterial and normal venous vascularity. The left ovary is visualized. The left ovary measures 1.9 cm x 1.87 x 1.5 cm. There is no left ovarian cyst or ovarian mass. There is no visualized left adnexal mass or complex lesion. There is normal arterial and normal venous vascularity. There is no fluid in the cul-de-sac. The pre void volume of the bladder was 56.3 ml. US/Pelvic (Non ) IMPRESSION: Normal female pelvis. Electronically Signed: Shashank Woodward MD at 13:42 EDT , Service support ,
== END ==
PROVIDERS: PCP Internal Medicine; Referring Provider Obstetrics & Gynecology; Visit Provider Obstetrics & Gynecology
DX: R10.2 Pelvic and perineal pain (principal)
CPT/HCPCS: 76830; 76856; 93976

== ENCOUNTER → 2021-08-09 09:53 | Outpatient (CLI) | payer BC, SELFPAY ==
[2021-08-09 10:26] LABS: Prolactin 12.8 ng/mL
== END ==
PROVIDERS: PCP Internal Medicine; Referring Provider Obstetrics & Gynecology; Visit Provider Obstetrics & Gynecology
DX: N64.52 Nipple discharge (principal)
CPT/HCPCS: 36415; 84146

== ENCOUNTER 2021-08-20 08:40 | Outpatient (CLI) | payer BC, SELFPAY ==
--- NOTE | 2021-08-20 09:17 | US_ITS ---
STUDY: ULTRASOUND BREAST - RIGHT REASON FOR EXAM: Female, 36 years old. Pain in the right breast. TECHNIQUE: Axial and longitudinal images of the RIGHT breast were performed with a high resolution ultrasound transducer. # OF IMAGES: 29 COMPARISON: Comparison is made with prior mammogram done earlier today. FINDINGS: RIGHT Breast: The retroareolar region of the breast was examined by ultrasound. No sonographic abnormality is seen. IMPRESSION: No sonographic abnormality is seen. ASSESSMENT CATEGORY: BIRADS Category 1: Negative. A letter regarding these results will be sent to the patient by the facility within 30 days. Electronically Signed: Shashank Woodward MD at 12:39 EST , Service support , STUDY: ULTRASOUND BREAST - LEFT REASON FOR EXAM: Female, 36 years old. Pain in the left breast. TECHNIQUE: Axial and longitudinal images of the LEFT breast were performed with a high resolution ultrasound transducer. # OF IMAGES: 29 COMPARISON: Comparison is made with prior mammogram done earlier today. FINDINGS: LEFT Breast: The retroareolar region of the breast was examined by ultrasound. No sonographic abnormalities seen. US/Breast Limited Unilateral IMPRESSION: No sonographic abnormality is seen. ASSESSMENT CATEGORY: BIRADS Category 1: Negative. A letter regarding these results will be sent to the patient by the facility within 30 days. Electronically Signed: Shashank Woodward MD at 12:40 EST , Service support ,
--- NOTE | 2021-08-20 09:17 | BI_ITS ---
MAMMOGRAPHY - BILATERAL DIAGNOSTIC REASON FOR EXAM: Female, 36 years old. Bilateral breast pain. PERTINENT HISTORY: Non-contributory. TECHNIQUE: Digital bilateral breast aric (3D mammographic acquisition) in the CC and MLO projections. 2-D mediolateral oblique (MLO) and craniocaudad (CC) views of both breasts were obtained. CAD: Full Field Digital Mammography with Computer Added Detection was performed. COMPARISON: None. Baseline examination. FINDINGS: Breast Composition: There are scattered areas of fibroglandular density. There are no dominant masses or suspicious calcifications. No other significant abnormalities are identified. BI/DIAG MAMM W/CAD, BILAT IMPRESSION: Negative diagnostic mammogram. With the patient''s history of bilateral periareolar pain, correlation with ultrasound is recommended. ASSESSMENT CATEGORY: BIRADS Category 0: Incomplete. Need additional imaging evaluation. A letter regarding these results will be sent to the patient by the facility within 30 days. Approximately 10% of breast cancers are not detected by mammography. A normal mammogram should not delay biopsy of a clinically suspicious abnormality. Electronically Signed: Shashank Woodward MD at 12:16 EST , Service support ,
== END 2021-08-20 23:59 | disposition short-term general hospital (02) ==
PROVIDERS: PCP Internal Medicine; Referring Provider Obstetrics & Gynecology; Visit Provider Obstetrics & Gynecology
DX: N64.4 Mastodynia (principal); N64.52 Nipple discharge
CPT/HCPCS: 76642; 77062; 77066; G0279

== ENCOUNTER → 2022-07-21 | Outpatient (CLI) | payer BC, SELFPAY ==
[2022-07-21 11:38] LABS: Cholesterol 213 mg/dL (200); High Density Lipoprotein 51 mg/dL; Triglycerides 83 mg/dL; Very Low Density Lipoprotein 17 mg/dL (5-40)
[2022-07-21 12:32] LABS: Hemoglobin A1c 5.9 % (3.8-5.6)
== END | disposition home or self-care (01) ==
PROVIDERS: PCP Internal Medicine; Referring Provider Obstetrics & Gynecology; Visit Provider Obstetrics & Gynecology
DX: E66.9 Obesity, unspecified (principal)
CPT/HCPCS: 36415; 80061; 83036

== ENCOUNTER → 2023-12-01 | Outpatient (CLI) | payer BC, SELFPAY ==
[2023-12-07 10:09] LABS: HPV APTIMA, High Risk Negative (Negative)
== END | disposition home or self-care (01) ==
LOC: LABSPEC 17:07
PROVIDERS: PCP Internal Medicine; Referring Provider Obstetrics & Gynecology; Visit Provider Obstetrics & Gynecology
DX: Z12.4 Encounter for screening for malignant neoplasm of cervix (principal)
CPT/HCPCS: 87624; 88175; G0145

== ENCOUNTER → 2024-03-14 | Outpatient (CLI) | payer BC, SELFPAY ==
[2024-03-18 22:07] LABS: Chlamydia By Nucleic Acid AMP Negative (Negative); Gonococcus By Nucleic Acid AMP Negative (Negative)
== END | disposition home or self-care (01) ==
LOC: LABSPEC 16:59
PROVIDERS: PCP Internal Medicine; Referring Provider Advanced Practice Midwife; Visit Provider Advanced Practice Midwife
DX: O99.210 Obesity complicating pregnancy, unspecified trimester (principal); E66.01 Morbid (severe) obesity due to excess calories; Z3A.00 Weeks of gestation of pregnancy not specified
CPT/HCPCS: 87086; 87088; 87491; 87591

== ENCOUNTER → 2024-03-21 | Outpatient (CLI) | payer BC, SELFPAY ==
[2024-03-21 15:17] LABS: Absolute Lymphocyte Count 2.16 X10^3/uL (0.83-4.51); Absolute Neutrophil Count 7.2 X10^3/uL (2.0-7.7); Basophil# 0.02 X10^3/uL; Basophil% 0.2 % (0-1); Eosinophil# 0.08 X10^3/uL; Eosinophils% 0.8 % (0-5); Hemoglobin 11.4 g/dL (12.0-15.0); Lymphocyte # 2.16 X10^3/ul (0.83-4.51); Lymphocyte % 21.7 % (19-41); Mean Corp Hgb Conc 32.6 g/dL (32-36); Mean Corpuscular Hgb 25.5 pg (27.0-32.0); Mean Corpuscular Volume 78.3 fL (81-99); Mean Platelet Vol. 10.2 fl (6.2-12.0); Monocyte# 0.49 X10^3/uL; Monocyte% 4.9 % (0-10); NRBC Flagged by Analyzer 0 % (0-5); Neutrophil # 7.18 X10^3/uL (2.7-7.7); Platelet Count 279 K/mm3 (150-450); RBC Distribution Width CV 13.6 % (11.6-14.6); RBC Distribution Width SD 38.7 fl (35.1-43.9); Red Blood Count 4.47 M/mm3 (4.2-5.4)
[2024-03-21 16:18] LABS: Hemoglobin A1c 5.4 % (3.8-5.6)
[2024-03-21 16:23] LABS: HIV - WCH Non-Reactive (Nonreactive); Hepatitis B Surface Antigen Non-Reactive (Nonreactive); Hepatitis C Antibody Non-Reactive (Nonreactive); Rubella IgG Reactive (Nonreactive); Syphilis Antibodies Non-reactive
== END | disposition home or self-care (01) ==
LOC: LAB 13:53
PROVIDERS: PCP Internal Medicine; Referring Provider Advanced Practice Midwife; Visit Provider Advanced Practice Midwife
DX: Z02.82 Encounter for adoption services (principal); E66.01 Morbid (severe) obesity due to excess calories; O09.511 Supervision of elderly primigravida, first trimester; O99.210 Obesity complicating pregnancy, unspecified trimester; Z3A.00 Weeks of gestation of pregnancy not specified
CPT/HCPCS: 36415; 83036; 85025; 86703; 86762; 86780; 86803; 86850; 86900; 86901; 87340

== ENCOUNTER → 2024-04-01 | Outpatient (CLI) | payer BC, SELFPAY | END | disposition home or self-care (01) | LOC: LAB 16:14 | PROVIDERS: PCP Internal Medicine; Referring Provider Obstetrics & Gynecology; Visit Provider Obstetrics & Gynecology | DX: O09.511 Supervision of elderly primigravida, first trimester (principal); Z3A.00 Weeks of gestation of pregnancy not specified | CPT/HCPCS: 36415 ==

== ENCOUNTER → 2024-04-11 | Outpatient (CLI) | payer BC, SELFPAY ==
[2024-04-11 10:39] LABS: Absolute Lymphocyte Count 1.37 X10^3/uL (0.83-4.51); Absolute Neutrophil Count 5.8 X10^3/uL (2.0-7.7); Basophil# 0.02 X10^3/uL; Basophil% 0.3 % (0-1); Eosinophil# 0.11 X10^3/uL; Eosinophils% 1.4 % (0-5); Hematocrit 34.7 % (37-47); Hemoglobin 11.3 g/dL (12.0-15.0); Lymphocyte # 1.37 X10^3/ul (0.83-4.51); Lymphocyte % 17.8 % (19-41); Mean Corp Hgb Conc 32.6 g/dL (32-36); Mean Corpuscular Hgb 25.8 pg (27.0-32.0); Mean Corpuscular Volume 79.2 fL (81-99); Mean Platelet Vol. 10.6 fl (6.2-12.0); Monocyte# 0.41 X10^3/uL; Monocyte% 5.3 % (0-10); NRBC Flagged by Analyzer 0 % (0-5); Neutrophil # 5.78 X10^3/uL (2.7-7.7); Neutrophil % 74.9 % (47-70); Platelet Count 267 K/mm3 (150-450); RBC Distribution Width CV 13.8 % (11.6-14.6); RBC Distribution Width SD 39.5 fl (35.1-43.9); Red Blood Count 4.38 M/mm3 (4.2-5.4); White Blood Count 7.7 K/mm3 (4.4-11.0)
[2024-04-11 11:05] LABS: Protein, Urine (Random) 39.8 mg/dL (<11.9); Protein:Creat Ratio 148 mg/g CRE (0-200)
[2024-04-11 11:09] LABS: ALB/GLOB Ratio 0.7 RATIO (0.9-2.4); AST(SGOT) 17 U/L (15-37); Alanine Aminotransfer ALT/SGPT 19 U/L (13-56); Alkaline Phosphatase 65 U/L (45-117); Anion Gap 7 (5-15); BUN 8 mg/dL (7-18); BUN/Creat Ratio 15.1 RATIO (10-20); Calcium,Total 8.9 mg/dL (8.5-10.1); Chloride 104 mmol/L (98-107); Creatinine, Serum 0.53 mg/dL (0.55-1.02); EST Glomerular Filtration Rate 138 mL/min (>60); Est Glom Filt Rate - Afr Amer 167 mL/min (>60); Globulin 4.6 g/dL (2.2-4.2); Glucose 102 mg/dL (74-106); Potassium 3.2 mmol/L (3.5-5.1); Protein, Total 7.6 g/dL (6.4-8.2); Sodium Level 137 mmol/L (136-145)
[2024-04-11 13:21] LABS: Protein, Urine (Random) 32.6 mg/dL (<11.9); Protein:Creat Ratio 181 mg/g CRE (0-200)
== END | disposition home or self-care (01) ==
LOC: LAB 10:00 → LABSPEC 12:00
PROVIDERS: PCP Internal Medicine; Referring Provider Obstetrics & Gynecology; Visit Provider Obstetrics & Gynecology
DX: O10.919 Unspecified pre-existing hypertension complicating pregnancy, unspecified trimester (principal); Z3A.00 Weeks of gestation of pregnancy not specified
CPT/HCPCS: 36415; 80053; 82570; 84156; 85025

== ENCOUNTER → 2024-04-25 | Outpatient (CLI) | payer BC, SELFPAY ==
--- NOTE | 2024-04-25 09:25 | EKG12_ITS ---
Test Reason : HTN Blood Pressure : / mmHG Vent. Rate : 089 BPM Atrial Rate : 089 BPM P-R Int : 156 ms QRS Dur : 078 ms QT Int : 382 ms P-R-T Axes : 026 -10 013 degrees QTc Int : 464 ms Normal sinus rhythm Normal ECG Confirmed by THALIA MUNOZ, HALLIE ([id number]), index editor CAROLINA DOWLING ([id number]) on 04/27/2024 8:12:07 AM Referred By: Dorita Foreman Confirmed By:HALLIE VÁSQUEZ MD
== END | disposition home or self-care (01) ==
PROVIDERS: PCP Internal Medicine; Referring Provider Obstetrics & Gynecology; Visit Provider Obstetrics & Gynecology
DX: O10.919 Unspecified pre-existing hypertension complicating pregnancy, unspecified trimester (principal); Z3A.00 Weeks of gestation of pregnancy not specified
CPT/HCPCS: 93005

== ENCOUNTER → 2024-07-04 | Outpatient (CLI) | payer BC, SELFPAY ==
[2024-07-04 11:52] LABS: Absolute Lymphocyte Count 1.57 X10^3/uL (0.83-4.51); Absolute Neutrophil Count 6.3 X10^3/uL (2.0-7.7); Basophil# 0.01 X10^3/uL; Basophil% 0.1 % (0-1); Eosinophil# 0.09 X10^3/uL; Eosinophils% 1.1 % (0-5); Hematocrit 31.8 % (37-47); Hemoglobin 10.3 g/dL (12.0-15.0); Lymphocyte # 1.57 X10^3/ul (0.83-4.51); Mean Corp Hgb Conc 32.4 g/dL (32-36); Mean Corpuscular Volume 80.3 fL (81-99); Monocyte# 0.26 X10^3/uL; Monocyte% 3.1 % (0-10); NRBC Flagged by Analyzer 0 % (0-5); Neutrophil # 6.32 X10^3/uL (2.7-7.7); Neutrophil % 76.3 % (47-70); Platelet Count 261 K/mm3 (150-450); RBC Distribution Width CV 13.6 % (11.6-14.6); RBC Distribution Width SD 39.3 fl (35.1-43.9); Red Blood Count 3.96 M/mm3 (4.2-5.4); White Blood Count 8.3 K/mm3 (4.4-11.0)
[2024-07-04 12:03] LABS: Glucose Challenge Gest 1H 50g 136 mg/dL (70-140)
[2024-07-04 12:38] LABS: HIV - WCH Non-Reactive (Nonreactive); Syphilis Antibodies Non-reactive
== END | disposition home or self-care (01) ==
LOC: BWCLAB 10:57
PROVIDERS: PCP Internal Medicine; Referring Provider Obstetrics & Gynecology; Visit Provider Obstetrics & Gynecology
DX: O09.92 Supervision of high risk pregnancy, unspecified, second trimester (principal); Z3A.00 Weeks of gestation of pregnancy not specified; Z13.1 Encounter for screening for diabetes mellitus
CPT/HCPCS: 36415; 82950; 85025; 86703; 86780

== ENCOUNTER → 2024-07-08 | Outpatient (CLI) | payer BC, SELFPAY ==
[2024-07-08 10:50] LABS: Bedside Glucose 95 mg/dL (74-106)
[2024-07-08 10:59] LABS: Glucose GTT-Gestation. Fasting 102 mg/dL (<105)
[2024-07-08 11:46] LABS: Absolute Lymphocyte Count 1.52 X10^3/uL (0.83-4.51); Absolute Neutrophil Count 7.6 X10^3/uL (2.0-7.7); Basophil# 0.02 X10^3/uL; Basophil% 0.2 % (0-1); Eosinophil# 0.09 X10^3/uL; Eosinophils% 0.9 % (0-5); Hematocrit 32.9 % (37-47); Hemoglobin 10.2 g/dL (12.0-15.0); Lymphocyte # 1.52 X10^3/ul (0.83-4.51); Lymphocyte % 15.9 % (19-41); Mean Corpuscular Hgb 25.5 pg (27.0-32.0); Mean Corpuscular Volume 82.3 fL (81-99); Mean Platelet Vol. 9.9 fl (6.2-12.0); Monocyte# 0.26 X10^3/uL; Monocyte% 2.7 % (0-10); NRBC Flagged by Analyzer 0 % (0-5); Neutrophil # 7.61 X10^3/uL (2.7-7.7); Platelet Count 232 K/mm3 (150-450); RBC Distribution Width CV 13.7 % (11.6-14.6); RBC Distribution Width SD 40.8 fl (35.1-43.9); White Blood Count 9.5 K/mm3 (4.4-11.0)
[2024-07-08 13:13] LABS: Glucose GTT-Gestational 2 Hr 142 mg/dL (<165)
[2024-07-08 13:17] LABS: Glucose GTT-Gestational 1 Hr 174 mg/dL (<190)
[2024-07-08 14:26] LABS: Glucose GTT-Gestational 3 Hr 97 L (<145)
== END | disposition home or self-care (01) ==
LOC: LAB 09:52
PROVIDERS: PCP Internal Medicine; Referring Provider Advanced Practice Midwife; Visit Provider Advanced Practice Midwife
DX: O99.019 Anemia complicating pregnancy, unspecified trimester (principal); Z13.1 Encounter for screening for diabetes mellitus; Z3A.00 Weeks of gestation of pregnancy not specified
CPT/HCPCS: 36415; 82951; 82952; 82962; 85025

== ENCOUNTER → 2024-08-02 | Outpatient (CLI) | payer BC, SELFPAY ==
[2024-08-02 14:12] LABS: Absolute Lymphocyte Count 1.85 X10^3/uL (0.83-4.51); Basophil# 0.02 X10^3/uL; Basophil% 0.2 % (0-1); Eosinophils% 1.1 % (0-5); Hemoglobin 10.8 g/dL (12.0-15.0); Lymphocyte # 1.85 X10^3/ul (0.83-4.51); Lymphocyte % 19.7 % (19-41); Mean Corp Hgb Conc 31.8 g/dL (32-36); Mean Corpuscular Hgb 25.5 pg (27.0-32.0); Mean Corpuscular Volume 80.2 fL (81-99); Mean Platelet Vol. 10.2 fl (6.2-12.0); Monocyte% 4.3 % (0-10); NRBC Flagged by Analyzer 0 % (0-5); Neutrophil # 7.01 X10^3/uL (2.7-7.7); Neutrophil % 74.4 % (47-70); Platelet Count 257 K/mm3 (150-450); RBC Distribution Width CV 13.9 % (11.6-14.6); RBC Distribution Width SD 40.2 fl (35.1-43.9); Red Blood Count 4.24 M/mm3 (4.2-5.4); White Blood Count 9.4 K/mm3 (4.4-11.0)
[2024-08-02 14:38] LABS: ALB/GLOB Ratio 0.6 RATIO (0.9-2.4); AST(SGOT) 11 U/L (15-37); Alanine Aminotransfer ALT/SGPT 16 U/L (13-56); Albumin, Serum 2.7 g/dL (3.2-5.0); Alkaline Phosphatase 95 U/L (45-117); Anion Gap 7 (5-15); BUN 13 mg/dL (7-18); BUN/Creat Ratio 24.1 RATIO (10-20); Calcium,Total 9.1 mg/dL (8.5-10.1); Chloride 106 mmol/L (98-107); Creatinine, Serum 0.54 mg/dL (0.55-1.02); EST Glomerular Filtration Rate 135 mL/min (>60); Est Glom Filt Rate - Afr Amer 163 mL/min (>60); Globulin 4.4 g/dL (2.2-4.2); Glucose 91 mg/dL (74-106); Potassium 3.6 mmol/L (3.5-5.1); Protein, Total 7.1 g/dL (6.4-8.2); Sodium Level 136 mmol/L (136-145)
== END | disposition home or self-care (01) ==
LOC: BWCLAB 13:43
PROVIDERS: PCP Internal Medicine; Referring Provider Obstetrics & Gynecology; Visit Provider Obstetrics & Gynecology
DX: R10.11 Right upper quadrant pain (principal)
CPT/HCPCS: 36415; 80053; 85025; 87086; 87088

== ENCOUNTER → 2024-08-22 | Outpatient (CLI) | payer BC, SELFPAY ==
[2024-08-22 10:20] LABS: Bedside Glucose 98 mg/dL (74-106)
[2024-08-22 10:54] LABS: Glucose GTT-Gestation. Fasting 102 mg/dL (<105)
[2024-08-22 11:28] LABS: Glucose GTT-Gestational 1 Hr 204 mg/dL (<190)
[2024-08-22 12:49] LABS: Glucose GTT-Gestational 2 Hr 180 mg/dL (<165)
[2024-08-22 13:27] LABS: Glucose GTT-Gestational 3 Hr 94 L (<145)
== END | disposition home or self-care (01) ==
LOC: LAB 09:43
PROVIDERS: PCP Internal Medicine; Referring Provider Obstetrics & Gynecology; Visit Provider Obstetrics & Gynecology
DX: Z13.1 Encounter for screening for diabetes mellitus (principal)
CPT/HCPCS: 36415; 82951; 82952; 82962

== ENCOUNTER → 2024-08-23 | Outpatient (CLI) | payer BC, SELFPAY ==
[2024-08-23 12:16] LABS: Absolute Lymphocyte Count 1.49 X10^3/uL (0.83-4.51); Basophil# 0.01 X10^3/uL; Basophil% 0.1 % (0-1); Eosinophil# 0.07 X10^3/uL; Eosinophils% 0.8 % (0-5); Hematocrit 34.9 % (37-47); Hemoglobin 10.9 g/dL (12.0-15.0); Lymphocyte # 1.49 X10^3/ul (0.83-4.51); Lymphocyte % 16.7 % (19-41); Mean Corp Hgb Conc 31.2 g/dL (32-36); Mean Corpuscular Hgb 25.1 pg (27.0-32.0); Mean Corpuscular Volume 80.4 fL (81-99); Mean Platelet Vol. 10.2 fl (6.2-12.0); Monocyte# 0.38 X10^3/uL; Monocyte% 4.3 % (0-10); NRBC Flagged by Analyzer 0 % (0-5); Neutrophil # 6.95 X10^3/uL (2.7-7.7); Neutrophil % 77.8 % (47-70); Platelet Count 237 K/mm3 (150-450); RBC Distribution Width SD 40.6 fl (35.1-43.9); Red Blood Count 4.34 M/mm3 (4.2-5.4); White Blood Count 8.9 K/mm3 (4.4-11.0)
[2024-08-23 12:29] LABS: ALB/GLOB Ratio 0.6 RATIO (0.9-2.4); AST(SGOT) 6 U/L (15-37); Alanine Aminotransfer ALT/SGPT 16 U/L (13-56); Albumin, Serum 2.5 g/dL (3.2-5.0); Alkaline Phosphatase 106 U/L (45-117); Anion Gap 5 (5-15); BUN 11 mg/dL (7-18); Calcium,Total 8.8 mg/dL (8.5-10.1); Chloride 105 mmol/L (98-107); Creatinine, Serum 0.58 mg/dL (0.55-1.02); EST Glomerular Filtration Rate 125 mL/min (>60); Est Glom Filt Rate - Afr Amer 151 mL/min (>60); Globulin 4.3 g/dL (2.2-4.2); Glucose 95 mg/dL (74-106); Potassium 3.6 mmol/L (3.5-5.1); Protein, Total 6.8 g/dL (6.4-8.2); Sodium Level 134 mmol/L (136-145)
[2024-08-23 12:47] LABS: Protein, Urine (Random) 47.4 mg/dL (<11.9); Protein:Creat Ratio 225 mg/g CRE (0-200)
== END | disposition home or self-care (01) ==
LOC: BWCLAB 10:22
PROVIDERS: Nurse Practitioner Women's Health; PCP Internal Medicine; Referring Provider Advanced Practice Midwife; Visit Provider Advanced Practice Midwife
DX: O10.919 Unspecified pre-existing hypertension complicating pregnancy, unspecified trimester (principal); Z3A.00 Weeks of gestation of pregnancy not specified

== ENCOUNTER → 2024-08-26 | Outpatient (CLI) | payer BC, SELFPAY ==
--- NOTE | 2024-08-26 08:01 | US_ITS ---
STUDY: OBSTETRICAL ULTRASOUND - BIOPHYSICAL PROFILE REASON FOR EXAM: Female, 39 years old well being LMP: January 01, 2024. PRIOR ULTRASOUND: None. TECHNIQUE: Transabdominal TECHNICAL QUALITY: Adequate. FINDINGS: There is a single intrauterine fetus. The fetus is in a cephalic presentation. There is demonstrated cardiac activity with a heart rate of 158 bpm. There is a normal amniotic fluid volume. The largest amniotic fluid pocket measures 6.7 cm. The amniotic fluid index (BENNETT) is 17.1 cm. The placenta is anterior in location and is not low lying. There are Grade 1 placental changes. Age by LMP: 34 weeks, 0 days. YANE by LMP: October 07, 2024. BIOPHYSICAL PROFILE: Breathing Movements (FBM): 2 Gross Body Movements (GBM): 2 Tone (FT): 2 Amniotic Fluid Volume (AFV): 2 TOTAL SCORE: 8 / 8 US/Biophysical Prof W/O Non Stres IMPRESSION: Normal biophysical profile of 03/21. Electronically Signed: Shashank Woodward MD at 15:00 EST ,
== END | disposition home or self-care (01) ==
LOC: US 07:56
PROVIDERS: PCP Internal Medicine; Referring Provider Nurse Practitioner Women's Health; Visit Provider Nurse Practitioner Women's Health
DX: O10.919 Unspecified pre-existing hypertension complicating pregnancy, unspecified trimester (principal); Z3A.00 Weeks of gestation of pregnancy not specified

== ENCOUNTER → 2024-09-13 | Outpatient (CLI) | payer BC, SELFPAY | END | disposition home or self-care (01) | LOC: LABSPEC 14:47 | PROVIDERS: PCP Internal Medicine; Referring Provider Obstetrics & Gynecology; Visit Provider Obstetrics & Gynecology | DX: Z34.93 Encounter for supervision of normal pregnancy, unspecified, third trimester (principal); Z3A.36 36 weeks gestation of pregnancy | CPT/HCPCS: 87081 ==

== ENCOUNTER → 2024-09-13 | Outpatient (CLI) | payer BC, SELFPAY ==
--- NOTE | 2024-09-13 12:21 | US_ITS ---
EXAM: BIOPHYSICAL PROF W/O NON STRES CLINICAL HISTORY: well-being. COMPARISON: None. TECHNIQUE: Pelvic sonographic imaging was performed. FINDINGS: Cephalic presentation. heart rate 143 beats per minute. Largest fluid pocket measures 8.3 cm x 4.2 cm. Amniotic fluid index measures 23.4. The placenta lies anterior and not low-lying. Placental grade: 2 Biophysical profile: Breathing movement: 2 Gross body movement: 2 tone: 2 Amniotic fluid volume: 2 Total score: 8/8 US/Biophysical Prof W/O Non Stres IMPRESSION: Normal biophysical profile. Reading Location: [facility]
== END | disposition home or self-care (01) ==
LOC: OPUS 12:21
PROVIDERS: PCP Internal Medicine; Referring Provider Obstetrics & Gynecology; Visit Provider Obstetrics & Gynecology
DX: O36.8390 Maternal care for abnormalities of the fetal heart rate or rhythm, unspecified trimester, not applicable or unspecified (principal); Z3A.00 Weeks of gestation of pregnancy not specified
CPT/HCPCS: 76819

== ENCOUNTER 2024-09-17 05:09 | Inpatient (IN) | payer BC, SELFPAY ==
[2024-09-17] VITALS (17 sets, daily range): BP systolic 97–150; BP diastolic 71–108; PULSE 93–120; RESP 16–20; TEMP 36.1–36.6; O2SAT 98–100; BMI 47.0
[2024-09-17] MEDS: Lactated Ringers 1,000 ML 999 ML IV (05:35)
[2024-09-17 06:01] LABS: Absolute Neutrophil Count 7.2 X10^3/uL (2.0-7.7); Basophil# 0.03 X10^3/uL; Basophil% 0.3 % (0-1); Eosinophil# 0.07 X10^3/uL; Eosinophils% 0.7 % (0-5); Hematocrit 35.2 % (37-47); Hemoglobin 11.5 g/dL (12.0-15.0); Lymphocyte % 20.3 % (19-41); Mean Corp Hgb Conc 32.7 g/dL (32-36); Mean Corpuscular Hgb 25.4 pg (27.0-32.0); Mean Corpuscular Volume 77.7 fL (81-99); Monocyte# 0.56 X10^3/uL; Monocyte% 5.7 % (0-10); NRBC Flagged by Analyzer 0 % (0-5); Neutrophil # 7.18 X10^3/uL (2.7-7.7); Neutrophil % 72.8 % (47-70); Platelet Count 250 K/mm3 (150-450); RBC Distribution Width CV 14.6 % (11.6-14.6); RBC Distribution Width SD 40.4 fl (35.1-43.9); Red Blood Count 4.53 M/mm3 (4.2-5.4); White Blood Count 9.9 K/mm3 (4.4-11.0)
[2024-09-17] MEDS: Acetaminophen 500 MG Tablet 1000 MG PO ×3 (06:20→18:16)
[2024-09-17 06:44] LABS: Bedside Glucose 93 mg/dL (74-106)
[2024-09-17] MEDS: Lactated Ringers 1,000 ML 150 ML IV (06:45)
[2024-09-17] MEDS: Sodium Citrate/Citric Acid 30 ML UDC PO (07:15)
--- NOTE | 2024-09-17 07:21 | HP.PCM_ITS ---
History and Physical Date of Admission: 09/17/24 [facility]'s [address], [address] [place] [address] OFFICE VISIT Date of Service: 09/13/24 MR#: [id number] Acct: [id number] Name: ADINA HAYNES Rep #: [id number] : 1985 Provider: Dr. Dorita Foreman MD Age/Sex: 39/F Location: [facility] [place] Status: Signed Intake Vital Signs 05/09/2409:25 09/06/2508:35 09/13/2509:56 Height 5 ft 1 in 5 ft 1 in 5 ft 1 in Weight: 249 lb BMI 47.0 BP 133/86 H Intake Visit Reasons: 36 WK OB/NST *CSEC/SM Chief Complaint: 36 wk OB/NST Is patient in pain?: No Allergies No Known Allergies Allergy (Verified 09/13/24 11:00) Medications ?Medication ?Instructions ?Recorded ?Confirmed ?Type sertraline 50 mg tablet 50 mg PO DAILY #90 TABLETS 10/30/2308/16 Rx cetirizine 10 mg capsule (Zyrtec) 10 mg PO DAILY PRN 03/08/24 09/13/24 His tory vit,calcium no.40-iron tab PO 03/08/24 09/13/24 History fum 27 mg iron-folate no.1 1 mg tablet (PNV-Select) ondansetron 4 mg disintegrating 4 mg PO Q6H PRN nausea and 05/09/2408/16 Rx tablet vomiting #30 tabs hydroxyzine pamoate 50 mg capsule 50 mg PO TID-QID PRN anxiety #60 5 09/13/24 Rx caps nifedipine 60 mg tablet,extended 60 mg PO DAILY #90 tabs 08/23/24 5 Rx release blood sugar diagnostic (Blood #120 ea 08/26/24 09/13/24 Rx Glucose Test strips) blood-glucose meter #1 ea 08/26/24 09/13/24 Rx lancets #200 ea 08/26/24 09/13/24 Rx metformin 500 mg tablet,extended 500 mg PO QDAY #30 tabs 09/09/24 5 Rx release 24 hr aspirin 81 mg tablet,delayed 81 mg PO QDAY 09/13/24 09/13/24 History release (Adult Low Dose Aspirin) Last Menstrual Period: 01/01/24 : No PFSH PFSH Medical History Hypertension Surgical History Garibaldi teeth extracted Hx of section S/P tonsillectomy and adenoidectomy Family History Other Adopted Social History adopted: Yes household members: spouse and children number of children: 1 current occupational status: employed current occupation: current occupational exposures/hazards: No pets and animals: No history of recent travel: No sexually active: Yes Smoking Status: Never smoker alcohol intake: never substance use type: does not use well-balanced diet: about half the time caffeine: No eating out: 1-3 times/week during the past year weight has: remained stable what type of physical activity do you participate in: walking and yoga frequency: 1-2 times per week duration: 45-60 minutes/day be/restoration: Sikhism seatbelt use: always do you feel safe at home: Yes additional social history: Fredy Odonnell History 2 Elective abortions Hx Para 1 Spontaneous abortions Hx # Term Pregnancies Ectopic pregnancies Hx # Pregnancies Multiple births # of living children 1 Past Pregnancies Del. Date Name GA/Weeks Outcome Route Bth Weight Infant Gen Labor Lgth Anesthesia Del Locatn Provider FOB 12/26/18 Elizabeth 38 live - full term 8pou nds 1oz Female spinal [facility] Delivery Date: 12/26/18 Last Updated by: Zuleyma Puckett Failed epidural, AoD 9cm HPI 36 WK OB/NST *CSEC/SM Details: ADINA HAYNES is a 39 year old who presents for RLTCS at 37 weeks due chtn cotnrolle diwth meds, had to incres meds in third trimester to maintain control, and metformin controlled diabetes OB Visit YANE Calculator Estimated Delivery Date Method Current WG Current Estimate 10/08/24 Ultrasound #1 36w 6d Other Estimates 10/07/24 LMP (Certain) 37w 0d Expected Delivery Route/Plan .repeat C/S with SM Specific Issue/Plans Covid status: Flu vaccine: given Tdap vaccine: [] Rhogam: na LARC form signed: yes Problem list reviewed and updated with the most current plan of care details and appropriate orders placed. Relevant counseling for the gestational age provided. Continue routine care and follow up unless otherwise noted in visit notes/problem list details Initial Weight: Not Recorded Date -?-?-?-?-?-?-?-?-?-?-?-?- EGA Weight BP Urine Prot -?-?-?-?-?-?-?-?-?-?-?-?- Glucose FHR FuHt Pres Dilation -?-?-?-?-?-?-?-?-?-?-?-?- Effaced St Visit Note 03/14/24-?-?-?-?-?-?-?-?-?-?-?-?- 10w 2d 238 lb 114/76 -?-?-?-?-?-?-?-?-?-?-?-?- 165 -?-?-?-?-?-?-?-?-?-?-?-?- KW- CRL 33mm. CRL cons with dates. NIPT with gender. ASA for HTN. MFM consult KW- CRL 33mm. CRL cons with dates. NIPT with gender. ASA for HTN. MFM consult. Confirmed use of amlodipine with SM. PLans repeat c/s with SM 04/11/24-?-?-?-?-?--?-?-?-?-?-?-?- 14w 2d 236 lb 8 oz 122/86 Negative -?-?-?-?-?-?-?-?-?-?-?-?- Negative 160 -?-?-?-?-?-?-?-?-?-?-?-?- SM- doing well no complaints started on procardia 05/09/24-?-?-?-?-?-?-?-?-?-?-?-?- 18w 2d 237 lb 2 oz 128/85 Negative -?-?-?-?-?-?-?-?-?-?-?-?- Negative 141 -?-?-?-?-?-?-?-?-?-?-?-?- JV- pt still feeling nausea and vomiting 1-2 times a day. recommend pepcid and will order zofran. no other complaints today 06/06/24-?-?-?-?-?-?-?-?-?-?-?-?- 22w 2d 239 lb 120/82 Negative -?-?-?-?-?-?-?-?-?-?-?-?- Negative 138 -?-?-?-?-?-?-?-?-?-?-?-?- -No VB. Good FM. MFM US completed and normal anatomy. No concerns 07/04/24-?-?-?-?-?-?-?-?-?-?-?-?- 26w 2d 242 lb 2 oz 117/79 Negative -?-?-?-?-?-?-?-?-?-?-?-?- Negative 143 30 -?-?-?-?-?-?-?-?-?-?-?-?- JV- GCT pending today. no complaints. 07/17/24-?-?-?-?-?-?-?-?-?-?-?-?- 28w 1d 243 lb 2 oz 120/84 Negative -?-?-?-?-?-?-?-?-?-?-?-?- Negative 146 31 -?-?-?-?-?-?-?-?-?-?-?-?- -No VB, LOF. Good FM. Larc. Growth US ordered. 08/02/24-?-?-?-?-?-?-?-?-?-?-?-?- 30w 3d 241 lb 123/80 Trace -?-?-?-?-?-?-?-?-?-?-?-?- Negative 140 34 -?-?-?-?-?-?-?-?-?-?-?-?- SM- having right sided pain, check labs and UA culture, n ovb lof good fm 08/16/24-?-?-?-?-?-?-?-?-?-?-?-?- 32w 3d 244 lb 4 oz 126/83 Negative -?-?-?-?--?-?-?-?-?-?-?-?- Negative 140 -?-?-?-?-?-?-?-?-?-?-?-?- SM- no vb lof good fm no reugla ctx 08/23/24-?-?-?-?-?-?-?-?-?-?-?-?- 33w 3d 245 lb 145/85 Trace -?-?-?-?-?-?-?-?-?-?-?-?- Negative 140 -?-?-?-?-?-?-?-?-?-?-?-?- kw- NST only. reactive. elevated bp today and PIH labs obtained. feeling anxious today due to her mother passing. Discussed increasing medication with SM and agrees to increase med to 60mg kw- NST only. reactive. elevated bp today and PIH labs obtained. feeling anxious today due to her mother passing. Discussed increasing medication with SM and agrees to increase med to 60mg and Celestone if PC ratio elevated 08/29/24-?-?-?-?-?-?-?-?-?-?-?-?- 34w 2d 245 lb 2 oz 128/86 Negative -?-?-?-?-?-?-?-?-?-?-?-?- Negative 135 -?-?-?-?-?-?-?-?-?-?-?-?- SM- no vb lof good fm no reg ctx needs to start BS checking, bp better controlled with increaed medication, with bring up cs to 37 weeks now. 09/06/24-?-?-?-?-?-?-?-?-?-?-?-?- 35w 3d 245 lb 6 oz 145/72277/85 Trace -?-?-?-?-?-?-?-?-?-?-?-?- Negative 135 -?-?-?-?-?-?-?-?-?-?-?-?- KW- NST today. BS reviewed and metformin started at HS 09/13/24-?-?-?-?-?-?-?-?-?-?-?-?- 36w 3d 249 lb 133/86 Trace -?-?-?-?-?-?-?-?-?-?-?-?- Negative 140 -?-?-?-?-?-?-?-?-?-?-?--?- SM- SM- BS better controlled with metformin ER and she is tolerating it. planning csection monday no vb lof good fm no regular ctx gbs collected ACOG First Trimester First Trimester: Desire for , Alcohol, Tobacco Cessation, Illicit/Recreational Drug/Substance Use, Intimate Partner Violence, Barriers to care, Unstable Housing, Communication Barriers, Environmental/Work Hazards, Anticipated Course of Care, Toxoplasmosis Precations, Use of Any medications, Sexual activity, Exercise, Dental Care, Sauna/Hot tub use, Seat Belt use, Childbirth classes/Hospital facilities, Travel, Indications for Ultrasound and Screening for Aneuploidy; Discussed Second Trimester Second Trimester: Signs and Symptoms of Labor, Selecting a care provider, Reproductive Life Planning & Contreception, Care Planning and Depression/Anxiety; Discussed Tobacco Cessation and Discussed Intimate Partner Violence Third Trimester Third Trimester: Pain Management Plans, Labor support person(s), Immediate Larc, Circumcision preference, Signs and Symptoms of Preeclampsia, Feeding No , [place] Education and Family Medical Leave or Disability Forms ROS Const Reports system reviewed and no additional complaints, except as documented Card Reports system reviewed and no additional complaints, except as documented Resp Reports system reviewed and no additional complaints, except as documented GI Reports system reviewed and no additional complaints, except as documented and Reports nausea Reports system reviewed and no additional complaints, except as documented Musc Reports system reviewed and no additional complaints, except as documented Exam Const General: cooperative, healthy appearing, comfortable and anxious HENMT Head: normal to inspection Nose: external nose normal Face and sinus: normal facial exam Neck Neck: normal visual inspection, full ROM and no lymphadenopathy Thyroid: thyroid normal Chest Chest palpation & inspection: normal inspection of the chest Resp Effort & Inspection: normal respiratory effort GI Inspection: normal to inspection Palpation: soft and other (gravid uterus) Other: vertex and appropriate size for gestational age Other: Cervical Exam: Extrem General: pedal edema Results POC Urinalysis 2 Dip (Clinic) Office Urine Glucose Negative Last Edit by Charo Traore on 09/13/24 11:18 Office Urine Protein Trace Last Edit by Charo Traore on 09/13/24 11:18 Coding Level of Care Code OB Routine Diagnoses Gestational diabetes O24.419 Abnormal glucose affecting O99.810 Anemia affecting in second trimester O99.012 Trimester: second trimester Chronic hypertension affecting O10.919 Advanced maternal age (AMA) in Morbid obesity with BMI of 45.0-49.9, adult E66.01; Z68.42 Adopted person Z02.82 Maternal anesthesia complication O74.9 Anxiety and depression F41.9; F32.A Hx of section Z98.891 Supervision of high risk in third trimester O09.93 Trimester: third trimester 36 weeks gestation of Z3A.36 Weeks of gestation: 36 weeks Assessment and Plan Assessment and Plan (1) Gestational diabetes: Status: Acute Comment: metformin started, BS testing fasting & 2 hr PP, television audio engineer referral (2) Abnormal glucose affecting : Status: Acute Comment: passed 3 hour-had elevated fasting, 09/07 failed GTT. (3) Anemia affecting : Status: Acute Qualifiers: Trimester: second trimester Qualified Code(s): O99.012 - Anemia complicating , second trimester Comment: start po iron cbc in 4 weeks (4) Chronic hypertension affecting : Status: Chronic Comment: baseline labs, procardia, s/p mfm consult, baby asa. Q4wk growth US. weekly BPP/BENNETT and weekly NST at 32 wk, deliver 37 (5) Advanced maternal age (AMA) in : Status: Acute Comment: low risk NIPT. (6) Morbid obesity with BMI of 45.0-49.9, adult: Status: Acute Comment: HGA1c Growth US q 4 weeks starting at 24 weeks: 28 wk EFW 88%, AC 97%. Rpt 4 wk (7) Adopted person: Status: Acute Comment: family hx unknown (8) Maternal anesthesia complication: Status: Acute Comment: failed epidural with 1st (9) Anxiety and depression: Status: Acute Comment: zoloft; mother passed 07/30/24; (10) Hx of section: Status: Acute Comment: prefer to have planned c section with SM RLTCS scheduled for 09/17 @ 7:15 with SM (11) Supervision of high-risk : Status: Acute Qualifiers: Trimester: third trimester Qualified Code(s): O09.93 - Supervision of high risk , unspecified, third trimester Comment: PRR, , YANE 10/07/24, boy PC Elizabeth, Fredy (12) : Status: Acute Qualifiers: Weeks of gestation: 36 weeks Qualified Code(s): Z3A.36 - 36 weeks gestation of Comment: Neg GBS. low risk NIPT & carrier testing. Nl anatomy Orders: plan RLTCS
[2024-09-17] MEDS: Carboprost Tromethamine 250 MCG/ML Ampul IM ×2 (08:00→08:16)
[2024-09-17] MEDS: TRANEXAMIC ACID 1,000 MG in 0.9% Normal Saline (100mL Bag) 100 ML 440 MG IV (08:10)
[2024-09-17] MEDS: miSOPROStol 200 MCG Tablet 1000 MCG RC (08:22)
[2024-09-17] MEDS: Ketorolac 30 MG/ML Syringe IV ×3 (09:26→21:14)
[2024-09-17] MEDS: HYDROmorphone 1 MG/ML Syringe IV (09:39)
--- NOTE | 2024-09-17 09:39 | EX.PCM.OBRPT ---
Assessment & Plan (1) Gestational diabetes: COMMENT: metformin started, BS testing fasting & 2 hr PP, attendant [facility] referral (2) Abnormal glucose affecting : COMMENT: passed 3 hour-had elevated fasting, 09/07 failed GTT. (3) Anemia affecting : QUALIFIERS: Trimester: second trimester Qualified Code(s): O99.012 - Anemia complicating , second trimester COMMENT: start po iron cbc in 4 weeks (4) Chronic hypertension affecting : COMMENT: baseline labs, procardia, s/p mfm consult, baby asa. Q4wk growth US. weekly BPP/BENNETT and weekly NST at 32 wk, deliver 37 (5) Advanced maternal age (AMA) in : COMMENT: low risk NIPT. (6) Morbid obesity with BMI of 45.0-49.9, adult: COMMENT: HGA1c Growth US q 4 weeks starting at 24 weeks: 28 wk EFW 88%, AC 97%. Rpt 4 wk (7) Adopted person: COMMENT: family hx unknown (8) Maternal anesthesia complication: COMMENT: failed epidural with 1st (9) Anxiety and depression: COMMENT: zoloft; mother passed 07/30/24; (10) Supervision of high-risk : QUALIFIERS: Trimester: third trimester Qualified Code(s): O09.93 - Supervision of high risk , unspecified, third trimester COMMENT: PRR, , YANE 10/07/24, boy PC Elizabeth, Fredy (11) : QUALIFIERS: Weeks of gestation: 36 weeks Qualified Code(s): Z3A.36 - 36 weeks gestation of COMMENT: Neg GBS. low risk NIPT & carrier testing. Nl anatomy (12) Hx of section: COMMENT: prefer to have planned c section with SM RLTCS scheduled for 09/17 @ 7:15 with (13) delivery delivered: COMMENT: RLTCS ira 37 chtn diabetes uterine atony Maternal Data Information YANE Calculator Estimated Delivery Date Method Current WG Current Estimate 10/08/24 Ultrasound #1 37w 0d Other Estimates 10/07/24 LMP (Certain) 37w 1d Final YANE Source: LMP Operative Report (OB) Cecarean Details Procedure Type: low transverse Date of Procedure: 09/17/24 Procedure Start Time: 07:19 Procedure Stop Time: 08:48 Pre-Operative Diagnosis: Other Other Pre-Operative diagnosis: see a/p comments Post-Operative Diagnosis: Same as Pre-operative diagnosis Classification: Scheduled Type of Anesthesia: Spinal Special Medications: none Antibiotic Given: Ancef 2 grams IV x1 Drain: Norman to straight drain Estimated Blood Loss: 800 Fluids Replaced: crystalloid Findings Description of surgery: Spinal anesthesia was placed without difficulty. Norman catheter was placed. The patient was placed in the dorsal supine position with leftward tilt. Patient was prepped and draped in the normal sterile fashion. Pfannenstiel skin incision was made with the scalpel and carried through to the underlying layer of fascia with the scalpel. Fascia was nicked in the midline and the incision extended laterally. The rectus bellies were dissected off superiorly and inferiorly with out complication both sharply and bluntly. adhesions on the rectus muscle and fascia were encoutered. The peritoneum was entered digitally and sharply, thickened tissue. The incision was stretched and a low transverse uterine incision was made with the scalpel. The infant's head was delivered atraumatically followed by the anterior and posterior shoulders without complication the rest of the delivered. The cord was clamped and cut and the infant was handed off to awaiting nurse. The placenta was delivered spontaneously immediately following and was noted to be intact and have a three-vessel cord. The uterus was exteriorized cleared of all clots and debris, and the incision was closed in a single layer closure using #1 Monocryl. The ovaries and fallopian tubes were noted to be within normal limits. The uterus was noted to be boggy but bleedingw as WNL, uterotonic agents given. the uterus was massaged and then was returned to the maternal abdomen and gutters were cleared of all clots and debris. The peritoneum was closed with 3-0 Monocryl in a running fashion. Gloves were changed prior to fascial closure. figure of eight stitch used for hemostasis along fascia on the right, hemoblast used along the muscles. Fascia was closed with 0 PDS in a running fashion. Subcutaneous tissue was copiously irrigated and the skin was closed with 3-0 Monocryl in a subcuticular fashion. Mepilex dressing was applied without complication. Patient was taken to recovery in stable condition. Surgical findings: muscle and fascial adhesions. uterine atony. Presentation: Vertex Amniotic Membrane Rupture Type: Artificial Amniotic Fluid Description: Clear Specimen collected: Yes Description of specimen(s) removed: placenta and baby Cord Vessel Description: 3 Vessels Delayed Cord Clamping: Yes Noteman rand butter: Yes Housing Assistant Property Manager: Edil Gonzales Tasks completed by junior assistant manager: Opening & closing, Retracting and Other (assisting in delivery of the infant) Additional financial legal assistant?: No Complications Complications: No Admit VTE Documentation VTE Present on Admission: No VTE Mechan Device Prophylaxis: SCD's Procedures Urinary/Genital [id number]: [id number] Delivery [facility]
--- NOTE | 2024-09-17 09:43 | DCINST_ITS ---
Discharge Instructions Diet Discharge Diet: No restrictions DC O2, CPAP, BIPAP needs Home O2 Discharge instructions: No Dressing / Incision Discharge Activity: May Not Drive (for 2 weeks or while taking narcotic pain medications.), May Shower and May Take a Tub Bath (in 7 days) May shower in (days): 0 May resume sexual activity in: 4-6 weeks Weight Bearing Status: Full weight bearing Lifting Restrictions: 20 pounds Dressing / Incision Call your doctor if your incision/area has: Continuous Slow Oozing, Sudden Increased Bleeding, Increased Pain/ Swelling, Increased Redness and Foul Smelling Discharge Call your doctor if you observe: Fever of 101 or Higher and Using more than 1 pad per hour (for 2 hours) Suture Line Care: Avoid Pulling/Pushing and Avoid Pinching/Bending Cleanse incision/area with: Soap & Water and Keep Dressing Clean & Dry Follow Up Care Please Follow Up With: Dorita Foreman MD When: Call [phone] to make an appointment for an incision check in 1-2 weeks. Test Results: Test results from this visit will be discussed in further detail at your follow- up appointment, if applicable. Discharge Plan Admission Admit Date/Time: 09/17/24 05:09 Attending Provider: Dorita Foreman Primary Care Provider: Cynthia Leon Discharge Orders/Prescriptions Prescriptions: New oxycodone-acetaminophen [Percocet] 5-325 mg tablet 1 tab PO Q4H PRN (Reason: pain) 7 Days Qty: 20 0RF naproxen 500 mg tablet 500 mg PO BID PRN PRN (Reason: Pain) Qty: 30 1RF No Action PNV-Select 27-1 mg tablet 1 tab PO DAILY Zyrtec 10 mg capsule 10 mg PO DAILY PRN (Reason: allergy symptoms) ondansetron 4 mg tablet,disintegrating 4 mg PO Q6H PRN (Reason: nausea and vomiting) Qty: 30 0RF hydroxyzine pamoate 50 mg capsule 50 mg PO TID-QID PRN (Reason: anxiety) Qty: 60 4RF aspirin [Adult Low Dose Aspirin] 81 mg tablet,delayed release (DR/EC) 81 mg PO QDAY sertraline 50 mg tablet 50 mg PO DAILY Qty: 90 4RF nifedipine 60 mg tablet extended release 60 mg PO DAILY Qty: 90 3RF (DME) Blood Glucose Test Strip See Rx Instructions .MEDSUPPLY Qty: 120 5RF Rx Instructions: As directed-fasting & 2 hr post meals (DME) blood-glucose meter Misc See Rx Instructions .MEDSUPPLY Qty: 1 0RF Rx Instructions: As directed- Test fasting and 2 hours after meals (DME) lancets Misc See Rx Instructions .MEDSUPPLY Qty: 200 5RF Rx Instructions: As directed-fasting & 2 hr post meals metformin 500 mg tablet extended release 24 hr 500 mg PO QDAY Qty: 30 3RF Referrals / Follow Up: Cynthia Leon MD [Primary Care Provider] - Disposition Disposition (needs filled in before D/C Order can be placed): Home, Self Care
[2024-09-17] MEDS: Oxytocin 15 Units/NS 250ml 15 UNITS/250 ML IV.SOLN 83 UNITS IV (09:49)
[2024-09-17 10:14] LABS: Syphilis Antibodies Non-reactive
[2024-09-17] MEDS: Diphenoxylate/Atrop 1 Tablet 2 TABLET PO (10:34)
[2024-09-17 10:36] LABS: Bedside Glucose 130 mg/dL (74-106)
[2024-09-17] MEDS: NIFEdipine 60 MG Tablet PO (20:08)
[2024-09-17] MEDS: Sertraline 50 MG Tablet PO (20:08)
[2024-09-17] MEDS: Enoxaparin 40 MG/0.4 ML Syringe SC (20:09)
[2024-09-17] MEDS: oxyCODONE 5 MG Tablet PO (20:15)
[2024-09-17] MEDS: 0.9% Saline Lock 10 ML Syringe IV (21:14)
--- NOTE | 2024-09-17 22:22 | NURSING ---
Pt unable to ambulate earlier per dayshift RN due to remaining numbness in pt's L leg. Pt able to ambulate when feeling returned.
[2024-09-18] VITALS (8 sets, daily range): BP systolic 133–152; BP diastolic 86–104; PULSE 92–102; RESP 16–19; TEMP 36.1–36.8; O2SAT 97–100
[2024-09-18] MEDS: Acetaminophen 500 MG Tablet 1000 MG PO ×4 (00:05→20:30)
[2024-09-18] MEDS: Ketorolac 30 MG/ML Syringe IV (03:58)
[2024-09-18] MEDS: 0.9% Saline Lock 10 ML Syringe IV (03:58)
[2024-09-18] MEDS: oxyCODONE 5 MG Tablet PO ×4 (06:30→20:47)
[2024-09-18 06:42] LABS: Bedside Glucose 87 mg/dL (74-106)
[2024-09-18 06:47] LABS: Hematocrit 30.2 % (37-47); Hemoglobin 9.5 g/dL (12.0-15.0); Mean Corp Hgb Conc 31.5 g/dL (32-36); Mean Corpuscular Volume 79.5 fL (81-99); Mean Platelet Vol. 10.7 fl (6.2-12.0); Platelet Count 229 K/mm3 (150-450); RBC Distribution Width CV 14.6 % (11.6-14.6); White Blood Count 10.3 K/mm3 (4.4-11.0)
--- NOTE | 2024-09-18 07:50 | PN.OBGYN_ITS ---
Subjective Subjective Patient doing well without complaints. Tolerating PO. Ambulating and voiding without difficulty. Feeding well. Denies chest pain, shortness of breath, calf pain/swelling, fevers, chills, lightheadedness. Objective Data Objective Data Vital Signs: Vital Signs Temp Pulse Resp BP Pulse Ox O2 Del Method 97 F L 92 16 136/89 H 100 Room Air 09/18/24 03:54 09/18/24 03:54 09/18/24 03:54 09/18/24 03:54 09/18/24 03:54 09/18/24 03:54 Oxygen Delivery Method Room Air Weight: 249 lb Body Mass Index (BMI) 47.0 Intake & Output: Intake and Output for Last 24 Hours 09/16/24 09/17/24 09/18/24 23:59 23:59 23:59 Intake Total 2360.0 / 2360.0 Output Total 1500 / 1500 Balance 860.0 / 860.0 Lab / Micro Data 09/18/24 06:20 Labs: Laboratory Results - last 24 hr 09/17/24 05:35: Syphilis Total Ab Non-reactive 09/17/24 09:49: POC Glucose 130 H 09/18/24 06:12: POC Glucose 87 09/18/24 06:20: WBC 10.3, RBC 3.80 L, Hgb 9.5 L, Hct 30.2 L, MCV 79.5 L, MCH 25.0 L, MCHC 31.5 L, RDW Std Deviation 42.0, RDW Coeff of Vito 14.6, Plt Count 229, MPV 10.7 Physical Exam Const alert and oriented x3 HEENT normocephalic Eyes PERRL Neck full ROM Resp normal respiratory effort GI soft to palpation GI Narrative: FF below U. Dressing dry and intact Palpation: tender other (appropriately) Assessment & Plan (1) delivery delivered: COMMENT: RLTCS SM ira 37 chtn diabetes uterine atony (2) Gestational diabetes: QUALIFIERS: Gestational diabetes mellitus control: unspecified T rimester: unspecified trimester Qualified Code(s): O24.419 - Gestational diabetes mellitus in , unspecified control COMMENT: stable pp (3) Chronic hypertension affecting : COMMENT: Stable pp. baseline labs, procardia, s/p mfm consult, baby asa. Q4wk growth US. weekly BPP/BENNETT and weekly NST at 32 wk, deliver 37 (4) Anxiety and depression: COMMENT: zoloft; mother passed 07/30/24; stable PLAN: Plan s/p LTCS PPD # 1 1. routine post care 2. breast feeding- support given 3. rh positive 4. rubella immune
[2024-09-18] MEDS: Enoxaparin 40 MG/0.4 ML Syringe SC ×2 (08:05→20:31)
[2024-09-18] MEDS: Senna/Docusate Sodium 1 Tablet PO (09:57)
[2024-09-18] MEDS: Naproxen 500 MG Tablet PO ×2 (09:57→18:36)
[2024-09-18] MEDS: NIFEdipine 60 MG Tablet PO (17:22)
[2024-09-18] MEDS: Sertraline 50 MG Tablet PO (20:31)
[2024-09-19] MEDS: Naproxen 500 MG Tablet PO ×2 (01:13→10:01)
[2024-09-19] MEDS: Acetaminophen 500 MG Tablet 1000 MG PO ×3 (01:14→13:46)
[2024-09-19 01:15] VITALS: BP 122/90; PULSE 93; RESP 16; TEMP 36.6; O2SAT 99
[2024-09-19] MEDS: oxyCODONE 5 MG Tablet PO ×2 (04:29→14:36)
[2024-09-19] MEDS: Enoxaparin 40 MG/0.4 ML Syringe SC (07:46)
[2024-09-19 08:17] VITALS: BP 125/92; PULSE 84; RESP 16; TEMP 36.2; O2SAT 100
--- NOTE | 2024-09-19 09:14 | PN.OBGYN_ITS ---
Subjective Subjective Patient is laying in bed comfortably without complaints. She states that she slept on an off during the night. Lochia is mild and pain is minimal. Objective Data Objective Data Vital Signs: Vital Signs Temp Pulse Resp BP Pulse Ox O2 Del Method 97.1 F L 84 16 125/92 H 100 Room Air 09/19/24 08:17 09/19/24 08:17 09/19/24 08:17 09/19/24 08:17 09/19/24 08:17 09/19/24 08:17 Oxygen Delivery Method Room Air Weight: 249 lb Body Mass Index (BMI) 47.0 Intake & Output: Intake and Output for Last 24 Hours 09/17/24 09/18/24 09/19/24 23:59 23:59 23:59 Intake Total 2360.0 / 2360.0 Output Total 1500 / 1600 750 / 750 Balance 860.0 / 760.0 -750 / -750 Lab / Micro Data 09/18/24 06:20 ROS Constitutional Constitutional: Reports systems reviewed and no addt'l complaints, except as documented Cardiovascular Cardiovascular: Denies chest pain, dizziness, dyspnea or irregular heart rhythm Respiratory/Chest Respiratory/Chest: Denies cough, pain on inspiration or shortness of breath at rest Gastrointestinal Gastrointestinal: Denies abdominal pain, nausea or vomiting Genitourinary Genitourinary: Denies burning urination Musculoskeletal Musculoskeletal: Denies muscle cramps, muscle spasms or muscle weakness Neurologic Neurologic: Denies confusion, dizziness, headache(s) or lack of coordination Psychiatric Psychiatric: Denies anxiety, behavioral changes or depression Physical Exam HEENT normocephalic Resp normal respiratory effort and normal air movement GI soft to palpation, non-tender and non-distended Rectal Exam: other Other Details: Incision is clean, dry, and intact no CVA tenderness Extremity normal to inspection General Extremity: edema bilateral (trace ) Assessment & Plan (1) delivery delivered: COMMENT: RLTCS SM ira 37 chtn diabetes uterine atony (2) Gestational diabetes: QUALIFIERS: Gestational diabetes mellitus control: unspecified T rimester: unspecified trimester Qualified Code(s): O24.419 - Gestational diabetes mellitus in , unspecified control COMMENT: stable pp (3) Anemia affecting : QUALIFIERS: Trimester: second trimester Qualified Code(s): O 99.012 - Anemia complicating , second trimester COMMENT: start po iron cbc in 4 weeks (4) Chronic hypertension affecting : COMMENT: Stable pp. baseline labs, procardia, s/p mfm consult, baby asa. Q4wk growth US. weekly BPP/BENNETT and weekly NST at 32 wk, deliver 37 (5) Advanced maternal age (AMA) in : COMMENT: low risk NIPT. (6) Morbid obesity with BMI of 45.0-49.9, adult: COMMENT: HGA1c Growth US q 4 weeks starting at 24 weeks: 28 wk EFW 88%, AC 97%. Rpt 4 wk (7) Adopted person: COMMENT: family hx unknown (8) Maternal anesthesia complication: COMMENT: failed epidural with 1st (9) Anxiety and depression: COMMENT: zoloft; mother passed 07/30/24; stable (10) Supervision of high-risk : QUALIFIERS: Trimester: third trimester Qualified Code(s): O09.93 - Supervision of high risk , unspecified, third trimester COMMENT: PRR, , YANE 10/07/24, boy PC Elizabeth, Fredy PLAN: Plan s/p LTCS PPD # 2 1. routine post care 2. breast feeding- support given 3. rh positive 4. rubella immune 5. patient wants to go home today
[2024-09-19] MEDS: Senna/Docusate Sodium 1 Tablet PO (10:02)
--- NOTE | 2024-09-19 10:38 | CASEMGMT ---
Social Work Assessment Labor and Delivery Unit Patient Address: [address] [place] [address] Phone number: [phone] Date of Referral: 09/17/24 Time of Referral:? 7 Referred By: Dr. Foreman Date of Intervention: ??09/19/24 Time of Intervention:? 929 Reason for Referral:? anxiety and depression Sw completed chart review and acknowledges social work consult due to maternal mental health history. Sw presented to bedside and introduced self to mother of baby (ARACELIS Cortes). Sw explained reason for sw involvement and completed psychosocial assessment. History obtained from: medical records and mother of baby (ODALYS)??? Household composition: Currently residing in the family home is ODALYS, father of baby (DERICK- Fredy) and their older daughter, Elizabeth (5 years old). baby to be added to residence when ready for discharge. Patient's parent/guardian status: ODALYS states that she and DERICK met while working together at [employer]. They have been together for 14 years, for 9. ODALYS denies any concerns of domestic violence or intimate partner violence. ? ?This is second child for parents together. Medical History: ?ODALYS is 39 year old female who is 2, para 1- now 2 following labor and delivery of . ODALYS received routine care during with [place]. ODALYS presented to hospital for scheduled repeat on 09/17/24. Baby boy, named Matias Penaloza, was born weighing 8lb 5oz with apgars of 8 and 9 at one and five minutes of life, respectfully. ODALYS states she is breast feeding and baby will be followed by Dr. Katz for pediatrics. Educational Status:? Both parents graduated from high school, and MOB obtained some college education but no degree. No problems with reading, learning or comprehension. Financial Status: Both parents are gainfully employed outside of the home. 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 Infant Supplies: All necessary baby supplies obtained, including: car seat, safe sleep space, clothes, diapers and wipes. Childcare/Caregiver(s):? ODALYS will be the primary caregiver to baby along with FOB when he is not at work. Programs/Agencies Involved: ???Both parents have their drivers license and reliable means of transportation, no barriers at this time. Children Services/Legal Issues:?No history of children services involvement, no issues or concerns warranting referral to be made at this time. ?? Behavioral Health Issues: ??Mental Health History:?MOB states that DERICK does not have any mental health diagnoses. MOB states that she has a history of anxiety and depression, she is currently prescribed zoloft to help her manage her mental health symptoms. MOB states that she got really depressed when her father passed a couple of years ago. MOB states at that time she did not want to get off the couch, and talked to her doctor. MOB states that she has been on the medication ever since. MOB states that she recently lost her mom and the past couple of months have been difficult for her. ?? Substance Use History:?MOB denies substance use prior to and during . ? Family History:?MOB denies family history of substance use and significant mental health diagnoses. ? Drug Screens: NO drug screens observed during chart review. Family/Social Stressors:? MOB states that the current loss of her mom has been the biggest stressor. MOB states that she is doing better recently and has processed the recent loss. Support Systems: MOB states that DERICK and her sister are her biggest supports. Depression/Shaken Baby/Safe Sleeping: Rosaline educated ODALYS on signs and symptoms of baby blues and depression and anxiety. MOB states that she struggled with some anxiety after her daughter was born. MOB states that it was just difficult to adjust to becoming a mom and all of the responsibility and toll on her body. MOB states that if she were to struggle during this period DERICK would be able to recognize that and would know how to help and support her. MOB states at this time she feels calm and thankful baby is here and her went well. MOB states that she does not feel sad or emotional. Rosaline educated ODALYS on shaken baby prevention and ABCs of safe sleep. MOB expressed understanding. ASSESSMENT:? MOB and baby admitted following labor and delivery of . MOB with mental health history of depression and has experienced the loss of both of her parents over the past couple of years, her mom as recent as July. MOB states that the recent loss of her mom has been really difficult, but she has good supports in place and feels much better with the help of her medication (zoloft). MOB states that she did struggle with some depression after the of her first baby, and states that it did not last long, symptoms dissipated once she felt transitioned into motherhood/ parenthood. MOB observed to be sitting in bed and FOB asleep on couch throughout duration of assessment. Baby was seen sleeping comfortably in bassinet. MOB states that she feels a eagle with baby and is excited to go home and be a family of four. MOB talkative and engaging throughout conversation. MOB intuitive regarding her mental health symptoms and recognizing her mental health may be more impacted during this period due to the recent loss of her mother. MOB receptive to talking to her OBGYN or possibly getting connected to community mental health services and supports. PLAN:?? No other services requested or indicated. MOB and baby to be discharged when medically ready. Parents were provided literature regarding: signs and symptoms of baby blues and mood and anxiety disorders, Help Me Grow, shaken baby prevention, ABCs of safe sleep and a list of county resources that are available for them should any needs present themselves. Herman Valderrama, HOSPITAL MORTICIAN, TISSUE INSERTER
[2024-09-19 10:45] VITALS: PULSE 84; RESP 16; O2SAT 100
[2024-09-19 13:10] VITALS: BP 148/95; PULSE 104; RESP 18; TEMP 36.4; O2SAT 98
[2024-09-19 13:23] VITALS: BP 138/92
--- NOTE | 2024-09-19 13:59 | NURSING ---
All documentation by hospital nursing assistant Beck Reinoso reviewed by skilled nursing facility counselor Lizzie Gallegos BSN, RN, CLC.
== END 2024-09-19 15:45 | disposition home or self-care (01) | DRG 788 ==
PROVIDERS: Admitting Provider Obstetrics & Gynecology; PCP Internal Medicine; Referring Provider Obstetrics & Gynecology; Visit Provider Obstetrics & Gynecology
PROC: 10D00Z1 Extraction of Products of Conception, Low, Open Approach (ICD-10-PCS; CPT 59514; principal; 2024-09-17 07:00)
DX: O10.92 Unspecified pre-existing hypertension complicating childbirth (principal); O99.214 Obesity complicating childbirth; D64.9 Anemia, unspecified; F32.A Depression, unspecified; O24.425 Gestational diabetes mellitus in childbirth, controlled by oral hypoglycemic drugs; E66.01 Morbid (severe) obesity due to excess calories; F41.9 Anxiety disorder, unspecified; O34.211 Maternal care for low transverse scar from previous cesarean delivery; O62.2 Other uterine inertia; O99.344 Other mental disorders complicating childbirth; O99.02 Anemia complicating childbirth; Z3A.36 36 weeks gestation of pregnancy; Z37.0 Single live birth; Z79.82 Long term (current) use of aspirin; Z79.899 Other long term (current) drug therapy; Z3A.37 37 weeks gestation of pregnancy
CPT/HCPCS: 59025; 59050; 82962; 85025; 85027; 86780; 86850; 86900; 86901; A4216; J2405

== ENCOUNTER → 2024-10-02 | Outpatient (CLI) | payer BC, SELFPAY ==
[2024-10-02] VITALS (9 sets, daily range): BP systolic 131–171; BP diastolic 79–112; PULSE 70–85; RESP 13–24; TEMP 35.2; O2SAT 95–100; BMI 43.4
--- NOTE | 2024-10-02 11:48 | CT_ITS ---
PROCEDURE: ABDOMEN/PELVIS W IV CONT ONLY REASON FOR EXAM: Abdominal pain. Recent . TECHNIQUE: Abdomen and pelvis CT with intravenous contrast. No oral contrast. IV CONTRAST: 92 cc of Isovue-300. COMPARISON: None. FINDINGS: Enlarged uterus with thickening of the endometrium in keeping with recent C- section. There is a 7.1 cm by 3.6 cm well-defined fluid collection in the deep subcutaneous fat overlying the right lower quadrant. This most likely is deep to the surgical incision. A similar-appearing well-defined fluid collection is seen in the left lower quadrant anteriorly measuring 2.8 cm x 1.9 cm. These most likely represent postoperative seromas and/or hematomas. There is also evidence of diffuse thickening of the muscle layer inferiorly just cephalad to this symphysis pubis most likely representing postoperative hematoma. Lung bases: Clear Liver: Diffuse fatty infiltration. Borderline hepatomegaly. Gallbladder: Unremarkable. Spleen: Unremarkable. Pancreas: Unremarkable. Adrenals: Unremarkable. Kidneys: Unremarkable. Bladder: Unremarkable. Reproductive Organs: Unremarkable. Bowel: Unremarkable. Appendix: Normal. Lymph nodes: No suspicious lymph node enlargement. Vasculature: Major vascular structures are unremarkable. Peritoneum / Retroperitoneum: No ascites. No free air. Bones: Unremarkable. CT/Abdomen/Pelvis W IV Cont ONLY IMPRESSION: Status post with fluid collections as described in the deep subcutane ous tissues more prominent on the right side suggestive of postoperative seroma or hematomas. One or more dose reduction techniques were used (e.g., Automated exposure contr ol, adjustment of the mA and/or kV according to patient size, use of iterative reconstruction technique). Reading Location: [place] [id number]
--- NOTE | 2024-10-02 13:06 | CT_ITS ---
PROCEDURE: CT GUIDANCE ABSCESS DRG W/CATH REASON FOR EXAM: Fluid collection in the deep right inferior abdominal subcutaneous tissue following recent . TECHNIQUE: Multiple axial tomographic images of the abdomen and pelvis were obtained. Sagittal and coronal reconstruction was obtained as well. The procedure as well as the benefits and possible complications including infection and bleeding were explained to the patient. Informed consent was obtained. The patient was in the supine position. Conscious sedation was performed. The patient received 2 mg of Versed and 50 mcg of fentanyl intravenously. Conscious sedation was started at 1:43 p.m. and terminated at 2:02 p.m.. The patient was independently monitored by the department nurse. Following this, an 18 gauge spinal needle was placed into the fluid collection in the right lower quadrant. 70 cc of dark colored fluid was aspirated. The specimen was sent to the laboratory. The patient tolerated the procedure well. COMPARISON: Prior CT scan of the abdomen pelvis done earlier in the day. FINDINGS: Fluid collections in the lower anterior abdominal wall. CT/CT Guidance Abscess Drg w/Cath IMPRESSION: Successful drainage of the fluid collection in the subcutaneous tissues overlyi ng the lower right anterior abdominal wall. The patient tolerated the procedure well. One or more dose reduction techniques were used (e.g., Automated exposure contr ol, adjustment of the mA and/or kV according to patient size, use of iterative reconstruction technique). Reading Location: [facility]
[2024-10-02] MEDS: Midazolam 2 MG/2 ML Syringe IV (13:43)
[2024-10-02] MEDS: fentaNYL 100 MCG/2 ML Ampul IV (13:45)
[2024-10-02] MEDS: 0.9% Saline Lock 10 ML Syringe IV (13:47)
[2024-10-02] MEDS: Lidocaine 2% (20 ml mdv) 20 ML Vial INFILT (13:55)
== END | disposition home or self-care (01) ==
PROVIDERS: PCP Internal Medicine; Referring Provider Nurse Practitioner Women's Health; Visit Provider Nurse Practitioner Women's Health
DX: T81.49XA Infection following a procedure, other surgical site, initial encounter (principal); R10.2 Pelvic and perineal pain; X58.XXXA Exposure to other specified factors, initial encounter
CPT/HCPCS: 74177; 75989; 87070; 87075; 87205; 99156; Q9967; A4216

== ENCOUNTER → 2024-10-30 | Outpatient (CLI) | payer BC, SELFPAY ==
[2024-10-30 15:07] LABS: Absolute Lymphocyte Count 2.77 X10^3/uL (0.83-4.51); Absolute Neutrophil Count 4.8 X10^3/uL (2.0-7.7); Basophil# 0.03 X10^3/uL; Basophil% 0.4 % (0-1); Eosinophil# 0.21 X10^3/uL; Eosinophils% 2.5 % (0-5); Hematocrit 37.9 % (37-47); Hemoglobin 11.8 g/dL (12.0-15.0); Lymphocyte # 2.77 X10^3/ul (0.83-4.51); Lymphocyte % 33.3 % (19-41); Mean Corp Hgb Conc 31.1 g/dL (32-36); Mean Corpuscular Hgb 24.1 pg (27.0-32.0); Mean Corpuscular Volume 77.5 fL (81-99); Mean Platelet Vol. 9.5 fl (6.2-12.0); Monocyte# 0.45 X10^3/uL; Monocyte% 5.4 % (0-10); NRBC Flagged by Analyzer 0 % (0-5); Neutrophil # 4.83 X10^3/uL (2.7-7.7); Neutrophil % 58.2 % (47-70); Platelet Count 329 K/mm3 (150-450); RBC Distribution Width CV 13.6 % (11.6-14.6); RBC Distribution Width SD 38.5 fl (35.1-43.9); Red Blood Count 4.89 M/mm3 (4.2-5.4); White Blood Count 8.3 K/mm3 (4.4-11.0)
== END | disposition home or self-care (01) ==
LOC: BWCLAB 14:58
PROVIDERS: PCP Internal Medicine; Referring Provider Obstetrics & Gynecology; Visit Provider Obstetrics & Gynecology
DX: R42 Dizziness and giddiness (principal)
CPT/HCPCS: 36415; 85025